=== PATIENT | female | born 1990 | race Caucasian/White ===

== ENCOUNTER 2016-12-05 11:36 | Emergency (ER) | payer OTHER ==
[~2016-12-05] VITALS: Ht 175.3 cm; Wt 78.7 kg
[~2016-12-05 11:36] MED LIST: ACET-749 PO; ALBUAER INH
[2016-12-05 11:40] VITALS: TEMP 36.4; Ht 175.3 cm; Wt 78.7 kg
--- NOTE | 2016-12-05 12:23 | DIAGNOSTIC IMAGING REPORT ---
LEFT ANKLE MIN 3 VIEWS ROUTINE CLINICAL HISTORY: Left ankle pain and trauma COMPARISON: None. DISCUSSION: No fractures or dislocations are visualized. The ankle mortise appears intact on these nonstress views. IMPRESSION: No fractures or dislocations identified. Electronically signed by: Russ Quiroz M.D. 12/05/2016 12:22 PM Dictated Date/Time: 12/05/2016 12:21 PM
[2016-12-05 12:55] VITALS: BP 103/67; PULSE 72; O2SAT 100
--- NOTE | 2016-12-05 21:40 | EMERGENCY ROOM VISIT NOTE ---
ED Visit Note First contact with patient: 11:49 Chief complaint: Left ankle pain. HPI: This 26-year-old white female presents to the emergency room for evaluation of her left ankle. The patient injured the ankle yesterday. She states she was at work and stepped awkwardly off of the curb. Her foot inverted. Since that time, they have had persistent pain over the lateral portion of the ankle. They deny any numbness or tingling. Pain is worse with weight-bearing. She has been walking with a limp. no knee or hip pain. No pop or snap with injury. Treatment has consisted of ice provided in the ER and [id number] orthotics that she bought yesterday. They did not help.. Positive prior history of ankle sprains. Pain is 5/10. REVIEW OF SYSTEM: HEENT: No dizziness, visual problems, hearing loss, tinnitus. There is no difficulty swallowing and no oral lesions are present. PULMONARY: No cough, shortness of breath, sputum production or hemoptysis. CARDIOVASCULAR: No chest pain, palpitations, shortness of breath or peripheral edema. GASTROINTESTINAL: No diarrhea, constipation, nausea, vomiting, or abdominal pain. GENITOURINARY: No dysuria, frequency, urgency or nocturia. NEUROLOGIC: No weakness, muscle tenderness, epilepsy or history of neurological problems. MUSCULOSKELETAL: No history of joint tenderness/swelling. No history of arthritis or arthralgias. SKIN: No rashes or lesions. PSYCHIATRIC: No history of depression or mental illness. ENDOCRINE: No history of diabetes, thyroid disorders, abnormal hair growth. PAST MEDICAL HISTORY: Supplemental sheet was reviewed. Previous surgeries: None Medical history: Benign Current medications: Reviewed and filed in patient's chart Allergies: Toradol, tramadol Family history: Noncontributory. Parents are living. Social history: Employed as a pop singer. PHYSICAL EXAM: Vitals: Afebrile. Reviewed and filed in patient's chart General: Well-developed, well-nourished, young white female, in obvious discomfort. No acute distress. She is sitting on a bed. Alert and oriented. Skin:Warm and dry with good turgor. No rashes or lesions. No erythema. The patient is not diaphoretic. No abrasions. Edema is present over the lateral malleolus. Musculoskeletal: Left ankle evaluation reveals no pain with palpation across the knee or proximal tibia or fibula. There is pain with palpation over the lateral malleolus and the lateral ligaments. No pain over the medial malleolus or deltoid ligament. Achilles' tendon is palpated to its entirety and found to be intact and without defect. Normal Hernández test. No pain with palpation of the calcaneus, fifth metatarsal base, midfoot, forefoot, or toes. Motor function to the toes is intact and unremarkable. Motor function to the ankle is intact but range of motion is limited by pain. Strength is 5/5 for resisted motion. Positive anterior drawer, negative calcaneal tilt. Neurologic: Gross sensation is intact across all aspects of the foot and ankle via soft touch. Peripheral pulses are 2+. Data: Radiographic images of the ankle were obtained today and were reviewed by me as well as radiology. They are unremarkable for fracture or other bony abnormality. IMPRESSION: Left ankle sprain. PLAN: The patient was educated regarding today's findings. Conservative care measures were discussed. Patient was given compressigrip for edema control and will use this for the next 5 days. Ankle gel splint was also applied and will be used for support for the next 3 weeks. It may be removed for bathing and sleep. It should be used for a few additional weeks for sporting events only. Crutches were offered and patient declined. Weight-bear as tolerable. Gentle motion daily. Ice and elevate intermittently over the next 3 days, after which she may switch to moist heat. Lower leg should be elevated at night during sleep. Tylenol and ibuprofen every 6 hours as needed for discomfort. Sprain handout was provided. Return to the ER for any acute changes. Follow-up with her PCP or orthopedist if not improving in 7 days. Patient did request a note to be off work today and tomorrow. This was provided. Problem List Medical Problems: (1) Noncompliance with medication regimen Status: Chronic (2) Vaginal delivery Status: Resolved Current/Historical Medications No Active Prescriptions or Reported Meds Allergies Coded Allergies: Tramadol (Verified Allergy, Intermediate, VOMITING, 12/05/16) Ketorolac Tromethamine (Unverified Adverse Reaction, Mild, nausea, 12/05/16) Vital Signs Date Time Temp Pulse Resp B/P Pulse Ox O2 Delivery O2 Flow Rate FiO2 12/05/16 12:55 72 18 103/67 100 12/05/16 11:40 36.4 92 18 116/78 99 Room Air Departure Information Impression Primary Impression: Left ankle sprain Dispostion Home / Self-Care Condition GOOD Prescriptions No Active Prescriptions or Reported Meds Forms HOME CARE DOCUMENTATION FORM, MOTRIN USE, TYLENOL USE, Work Instructions, Return To Work: 2 days IMPORTANT VISIT INFORMATION Patient Instructions [employer] Additional Instructions weight-bear as tolerable Ice and elevate intermittently x3 days, and then use moist heat Tylenol and ibuprofen every 6 hours as needed for pain Gentle motion daily See your PCP or orthopedist if not improving over 7 days Use gel splint at all times other than bathing and sleep for 4 weeks, and then use it for an additional 2 weeks for any sporting activity Off work for Tuesday and Tuesday to allow recovery. If more time as needed, follow-up with your PCP Work Instructions Return To Work: 2 days
== END 2016-12-05 12:56 | disposition home or self-care (01) ==
LOC: C.EDB 11:38 → C.EDD 12:56
DX: S93.402A Sprain of unspecified ligament of left ankle, initial encounter (principal); W10.1XXA Fall (on)(from) sidewalk curb, initial encounter

== ENCOUNTER 2017-01-04 15:06 | Inpatient (IN) | payer OTHER ==
[~2017-01-04] VITALS: Ht 175.3 cm; Wt 75.1 kg
[2017-01-04 15:47] LABS: URINE APPEARANCE CLEAR (CLEAR); URINE BILIRUBIN NEG (NEG); URINE COLOR YELLOW; URINE EPITHELIAL CELL AUTO 20-30 /lpf (0-5); URINE NITRITE NEG (NEG); URINE PH 7.5 (4.5-7.5); URINE SPECIFIC GRAVITY 1.022 (1.000-1.030); UROBILINOGEN NEG (NEG); ZZUR CULT IF INDIC CLEAN CATCH YES
--- NOTE | 2017-01-04 15:49 | EMERGENCY ROOM VISIT NOTE ---
History Report prepared by Ignacio: Milena Barclay Under the Supervision of: Dr. Steven Hernandez M.D. First contact with patient: 15:11 Chief Complaint: MENTAL HEALTH EVALUATION Stated Complaint: MENTAL HEALTH EVALUATION History of Present Illness The patient is a 26 year old female who presents to the Emergency Room for mental health evaluation. The patient states that she has had constant suicidal ideation for the past 3 days. She denies having a plan at this time. The patient states that she suffers from anxiety, depression and PTSD. She has not been on any medication for the past 2 years. She states that 2 years ago she was treated inpatient for a suicide attempt. The patient's plan at that time was to jump out her window which her mother stopped her from doing. The patient states that around a month ago she began cutting herself but did not seek help at that time. Since then her symptoms have worsened. The patient states that the cause of her symptoms are from family and work troubles. She states "a lot of stuff is going on". The patient has been getting written up at work for behavior such as having a wrinkled shirt. She also notes that she has not been able to see her children. She admits to cutting her wrist. The patient notes that she has not eaten for the past 3 days. She also is only sleeping for a few hours each day. The patient has been having trouble controlling her emotions and is having crying spells. She admits to using marijuana a few weeks ago but denies daily drug or alcohol use. The patient denies known health problems, having a therapist or counselor. She also denies chance of . The patient's tetanus is UTD. She would like inpatient treatment. Source of History: patient Onset: 3 days QUALITY CONTROL REPRESENTATIVE Position: other (global) Quality: other (suicidal ideation) Timing: constant Note: The patient has been cutting her wrist. She denies known health problems, chance. Review of Systems See HPI for pertinent positives & negatives. A total of 10 systems reviewed and were otherwise negative. Past Medical & Surgical Medical Problems: (1) Anxiety (2) Depression (3) Noncompliance with medication regimen (4) Ovarian cyst (5) PTSD (post-traumatic stress disorder) (6) Vaginal delivery Family History Diabetes mellitus FH: migraines Hypertension Kidney disease or stones Seizures Social History Smoking Status: Current Every Day Smoker Alcohol Use: none Drug Use: none Marital Status: in relationship Housing Status: lives with family Occupation Status: unemployed Current/Historical Medications No Active Prescriptions or Reported Meds Allergies Coded Allergies: Tramadol (Verified Allergy, Intermediate, VOMITING, 01/04/17) Ketorolac Tromethamine (Verified Adverse Reaction, Mild, nausea, 01/04/17) Physical Exam Vital Signs Date Time Temp Pulse Resp B/P (MAP) Pulse Ox O2 Delivery O2 Flow Rate FiO2 01/04/17 17:05 71 17 104/78 98 Room Air 01/04/17 15:08 36.9 116 18 110/71 100 Room Air Physical Exam GENERAL: Patient is in no acute distress. HEENT: No acute trauma, normocephalic atraumatic, mucous membranes moist, no nasal congestion, no scleral icterus. NECK: No stridor, no adenopathy, no meningismus, trachea is midline. LUNGS: Clear to auscultation bilaterally, no wheeze, no rhonchi, breath sounds equal. HEART: Tachycardic with regular rhythm, no murmurs. ABDOMEN: Soft, nontender, bowel sounds positive, no hernias, no peritonitis. EXTREMITIES: No cyanosis or edema, full range of motion of all the joints without pain or difficulty, superficial healing lacs to the volar left wrist-- no infection. NEUROLOGIC: Oriented x 3, no acute motor or sensory deficits, no focal weakness. SKIN: No rash, no jaundice, no diaphoresis. PSYCH: Cooperative, admits to suicidal ideation with no set plan, currently voluntary. Medical Decision & Procedures Laboratory Results 01/04/17 15:57 01/04/17 15:57 Test 01/04/17 15:30 01/04/17 15:57 Urine Color YELLOW Urine Appearance CLEAR (CLEAR) Urine pH 7.5 (4.5-7.5) Urine Specific [place] 1.022 (1.000-1.030) Urine Protein NEG (NEG) Urine Glucose (UA) NEG (NEG) Urine Ketones NEG (NEG) Urine Occult Blood 3+ (NEG) Urine Nitrite NEG (NEG) Urine Bilirubin NEG (NEG) Urine Urobilinogen NEG (NEG) Urine Leukocyte Esterase NEG (NEG) Urine WBC (Auto) 1-5 /hpf (0-5) Urine RBC (Auto) >30 /hpf (0-4) Urine Hyaline Casts (Auto) 1-5 /lpf (0-5) Urine Epithelial Cells (Auto) 20-30 /lpf (0-5) Urine Bacteria (Auto) 2+ (NEG) Urine Test NEG (NEG) Urine Opiates Screen NEG (NEG) Urine Methadone, Qualitative NEG (NEG) Urine Barbiturates NEG (NEG) Urine Phencyclidine (PCP) Level NEG (NEG) Ur Amphetamine/Methamphetamine NEG (NEG) MDMA (Ecstasy) Screen NEG (NEG) Urine Benzodiazepines Screen NEG (NEG) Urine Cocaine Metabolite NEG (NEG) Urine Marijuana (THC) NEG (NEG) Red Blood Count 4.44 M/uL (4.2-5.4) Mean Corpuscular Volume 85.1 fL (80-100) Mean Corpuscular Hemoglobin 27.9 pg (25-34) Mean Corpuscular Hemoglobin Concent 32.8 g/dl (32-36) RDW Standard Deviation 55.7 fL (36.4-46.3) RDW Coefficient of Variation 17.7 % (11.5-14.5) Mean Platelet Volume 9.4 fL (7.4-10.4) Anion Gap 5.0 mmol/L (3-11) Est Creatinine Clear Calc Drug Dose 139.5 ml/min Estimated GFR () 144.0 Estimated GFR (Non- 124.3 BUN/Creatinine Ratio 10.7 (10-20) Calcium Level 8.9 mg/dl (8.5-10.1) Total Bilirubin 0.3 mg/dl (0.2-1) Aspartate Amino Transf (AST/SGOT) 11 U/L (15-37) Alanine Aminotransferase (ALT/SGPT) 19 U/L (12-78) Alkaline Phosphatase 58 U/L (45-117) Total Protein 8.1 gm/dl (6.4-8.2) Albumin 4.2 gm/dl (3.4-5.0) Globulin 3.9 gm/dl (2.5-4.0) Albumin/Globulin Ratio 1.1 (0.9-2) Thyroid Stimulating Hormone (TSH) 2.080 uIu/ml (0.300-4.500) Salicylates Level < 1.7 mg/dl (2.8-20) Acetaminophen Level < 2 ug/ml (10-30) Ethyl Alcohol mg/dL < 3.0 mg/dl (0-3) Laboratory results reviewed by me. Medications Administered Medications (Trade) Dose Ordered Sig/Blanka Route Start Time Stop Time Status Last Admin Dose Admin Acetaminophen (Tylenol Tab) 1,000 mg STK-MED ONCE PO 01/04/17 17:27 01/04/17 17:28 DC 01/04/17 17:31 1,000 MG ED Course 1513: The patient was evaluated in room A5. A complete history and physical exam was performed. 1728: [facility] is looking to take her on their service voluntarily. 1839: The patient has been accepted to [facility] voluntarily. 1843: I discussed results and treatment plan with the patient. She verbalizes agreement and understanding. The patient will be evaluated for further management. Medical Decision The patient is a 26 year old female who presents to the ED for mental health evaluation. Differential diagnoses considered include drug and alcohol abuse, thyroid disorder, electrolyte or metabolic imbalance, , situational depression and anxiety. There is no leukocytosis or concerning anemia. No significant electrolyte abnormality, kidney failure or hepatitis. The patient appears to be in a euthyroid state. testing is negative. Urinalysis shows contamination and hematuria-the patient is on her menstrual cycle. Urine tox is negative. Aspirin, Tylenol and alcohol levels are undetectable. The patient presents voluntarily--she is suicidal. She is medically clear for a psychiatric stay. The patient was seen by the psychiatry services at this hospital. She is being brought into our psychiatry floor voluntarily. She has done well during her stay here in the ER. Medication Reconciliation: I attest that I have personally reviewed the patient' s current medication list. Blood Pressure Screening: Patient was found to have normal blood pressure on screening and does not require follow-up. Impression Primary Impression: Suicidal ideation Scribe Attestation The scribe's documentation has been prepared under my direction and personally reviewed by me in its entirety. I confirm that the note above accurately reflects all work, treatment, procedures, and medical decision making performed by me. Departure Information Dispostion Mental Health Acute Care Prescriptions No Active Prescriptions or Reported Meds Referrals Oli Geronimo M.D. (PCP)
[2017-01-04 15:54] LABS: MANUAL MICROSCOPIC REQUIRED? NO; REVIEW REQ? NO
[2017-01-04 16:07] LABS: HEMATOCRIT 37.8 % (37-47); MEAN CELL VOLUME 85.1 fL (80-100); MEAN CORPUSCULAR HEMOGLOBIN 27.9 pg (25-34); MEAN CORPUSCULAR HGB CONC 32.8 g/dl (32-36); MEAN PLATELET VOLUME 9.4 fL (7.4-10.4); PLATELET COUNT 303 K/uL (130-400); RED BLOOD COUNT 4.44 M/uL (4.2-5.4); WHITE BLOOD COUNT 4.39 K/uL (4.8-10.8)
[2017-01-04 16:34] LABS: BUN/CREATININE RATIO 10.7 (10-20); CALCIUM 8.9 mg/dl (8.5-10.1); CREATININE 0.65 mg/dl (0.60-1.20); POTASSIUM 3.4 mmol/L (3.5-5.1)
[2017-01-04 16:40] LABS: ACETAMINOPHEN < 2 ug/ml (10-30)
[2017-01-04 16:44] LABS: ALB/GLOB RATIO 1.1 (0.9-2); THYROID STIMULATING HORMONE 2.08 uIu/ml (0.300-4.500)
[2017-01-04 17:05] VITALS: O2SAT 98
[2017-01-04] MEDS ORDERED: ACETAMINOPHEN 500 MG TAB PO ONE (17:27)
[2017-01-04 18:10] LABS: BENZODIAZEPINE, URINE NEG (NEG); COCAINE,URINE NEG (NEG); PHENCYCLIDINE, URINE NEG (NEG)
[2017-01-04] MEDS ORDERED: NURSING VERBAL MED ORDER ONE (18:30)
[2017-01-04] MEDS ORDERED: ALUMINUM/MAGNESIUM SUSP 30 ML UDC PO PRN (19:30)
[2017-01-04] MEDS ORDERED: MAGNESIUM HYDROXIDE SUSP 30 ML UDC PO PRN (19:30)
[2017-01-04] MEDS ORDERED: NICOTINE 21 MG/24 HR TDSY EXT ONE (19:30)
[2017-01-04] MEDS ORDERED: BISMUTH SUBSALICYLATE PER ML OMNICELL CHARGE PO PRN (19:30)
[2017-01-04] MEDS ORDERED: SODIUM CHLORIDE 0.65% NA SOLN 45 ML (OCEAN) PRN (19:30)
[2017-01-04 20:12] VITALS: BP 99/65; PULSE 74; TEMP 36.6; Ht 175.3 cm; Wt 75.1 kg
[2017-01-04] MEDS: NICOTINE POLACRILEX 2 MG GUM MT PRN (21:29)
[2017-01-04] MEDS: hydrOXYzine HCL 25 MG TAB PO PRN (22:17)
[2017-01-04] MEDS: ACETAMINOPHEN 325 MG TAB PO PRN (22:39)
[2017-01-05 06:41] VITALS: BP_SYST 103; BP_SYST 91; BP_DIAS 59; BP_DIAS 73; PULSE 66; PULSE 83; TEMP 36.5
[2017-01-05] MEDS: NICOTINE 21 MG/24 HR TDSY EXT SCH (09:01)
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
[2017-01-05] MEDS: NICOTINE POLACRILEX 2 MG GUM MT PRN (11:07)
[2017-01-05] MEDS: hydrOXYzine HCL 25 MG TAB PO PRN ×2 (12:27→22:32)
[2017-01-05] MEDS: ESCITALOPRAM OXALATE 10 MG TAB PO SCH (21:12)
[2017-01-05] MEDS: ACETAMINOPHEN 325 MG TAB PO PRN (22:33)
[2017-01-06 06:36] VITALS: BP_SYST 80; BP_SYST 90; BP_DIAS 46; BP_DIAS 55; PULSE 54; PULSE 71; TEMP 36.7
[2017-01-06] MEDS: NICOTINE 21 MG/24 HR TDSY EXT SCH (08:46)
[2017-01-06] MEDS: hydrOXYzine HCL 25 MG TAB PO PRN ×3 (13:06→22:25)
--- NOTE | 2017-01-06 13:31 | Psychiatric Progress Notes ---
Progress Note Date of Service Jan 06, 2017. Interval History Lesly Ornelas is a 26-year-old female who currently lives in [place], has a history of recurrent depression and rule out PTSD, bipolar type II, treatment noncompliance, alcohol abuse, and borderline intellectual functioning who presented to the emergency room 01/04/2017 with worsening mood and suicidality and thoughts to walk out in front of traffic. She was admitted voluntarily. Chief Complaint "Better". Subjective Staff report the patient is going to groups, participating in treatment, and taking medications without difficulty. The patient states that her mood has improved since admission, stating that she talk to her boyfriend that he is going to help her find a new job. She plans to continue to work at [employer] until that time, stating she needs the money. When asked about reports in the record that she endorsed thoughts of harming her boss, she states that she never had a plan or intent to harm anyone, but was "just angry." She states that her boss was not supportive when the patient told her that she needed to go to the hospital and get treatment, wanting her to be discharged quickly so that she could return to work. She denies any history of harming anyone else, and denies any current thoughts of harming anyone. She states that she thinks she will be able to get along with her boss while she continues to work there and look for a new job. She wanted advice on how to make sure she would not be fired from her job for missing work while she is in the hospital, and we reviewed a plan for her to call her employer today and inform them that she would be cleared to return to work in about a week and would have a doctor's note for this. She said she is anxious about calling, and wondered if staff could just do it for her, but was informed that this would be a good task for her to practice and that we would support her. She denies suicidal thoughts and feels safe here. She reports disrupted sleep, with nightmares about her mother finding out she is in the hospital. She was very anxious yesterday after she saw the hospital staff member who is friends with her mother, fearing that this person would tell her mother she was here, she felt better after talking to staff and taking hydroxyzine for anxiety. Sleep Information Total Hours of Sleep: 8.25 Meal Information Percent of Breakfast Consumed: 50 Percent of Lunch Consumed: 50 Percent of Dinner Consumed: 50 Mental Status Exam During interview pt is: alert and oriented, cooperative Appearance: appropriately dressed, appropriately groomed Eye contact is: good Motor behavior is: steady gait & station, no abnormal motor movements Speech: normal in rate, rhythm & volume Affect: mood congruent Mood is: other ("better") Thought process: goal directed, linear, logical, concrete Thought content: reality based without delusions Suicidal thought are: denied Homicidal thoughts are: denied Hallucinations: denies auditory, denies visual Cognition: memory grossly intact, attention grossly intact, language grossly intact Intelligence estimated to be: consistent with level of education Insight: fair Judgement: fair Impression 26-year-old single white female with a history of recurrent depression and rule out bipolar type II, PTSD, alcohol abuse, and borderline intellectual functioning who had [id number] admissions in 2014, was started on lamotrigine , sertraline, and hydroxyzine when necessary, and discharged to outpatient care. She unfortunately stopped medications and did not follow up as an outpatient, and mood and anxiety have worsened in the context of increasing psychosocial stressors, with job stress, loss of ability to visit with children , financial strain, and difficult relationships with family. She is willing to resume medication for mood and anxiety, and is requesting a referral to [place] for outpatient treatment. Plan (1) PTSD (post-traumatic stress disorder) Trial of escitalopram as above. Refer for outpatient therapy. (2) Depression - Patient requesting another antidepressant. She never took lamotrigine as she doesn't think she has bipolar, and is not willing to take a mood stabilizer. R/ o bipolar type 2, as mother had previously reported some hypomanic episodes, but patient disagrees. It is certainly possible that the symptoms described above could be seen in the context of her personality structure, substance abuse , and/or cognitive abilities rather than a true bipolar disorder. She will require close monitoring for mood destabilization, and we reviewed the risks of this. Discussed trial of escitalopram and she agreed after review of risks, benefits and side effects. We'll start 10 mg daily at bedtime tonight, and titrate as tolerated. - Interested in referral to [facility] for aftercare. Does not want to return to case management, clubhouse or psych rehab. - Family meeting with boyfriend if possible. She states he is only available on Tuesday. She does not want to involve her mother. (3) Suicidal ideation Q 15 min checks for safety. Work on healthy coping skills and discharge safety plan. (4) Ovarian cyst 01/06 - Patient requesting to start an oral contraceptive. Advised that we do not stop them here, but could send a prescription at discharge if we knew the name of the medication she's taken in the past. She is looking into that. She should follow up with an BUILDING MAINTENANCE CUSTODIAN after discharge for regular care. Discharge / Aftercare Planning Primary Care Physician: Name: Dr Geronimo Therapist: Name: .Red Guzman Date of Appointment: Jan 13, 2017 Time of Appointment: 2:30Pm Sociocultural Anthropology Professor: Name: None Visit Code E&M Code: 25387 Inventory Assets Strengths: "Good boyfriend," wants to get custody of kids back, employed Risk Factors Assessment : Yes /single/: Yes Higher / Fall in social status: No Health problems: No Mental Health Diagnoses: Yes Substance use disorders: No Previous attempt: Yes Previous attempt;highly lethal: No Previous psychiatric stay: Yes Hopelessness: Yes Smoker: Yes Protective Factors Assessment Jehovah'S Witness beliefs: No : No Responsible for young children: No (Lost custody of kids) Employed: Yes Stable relationships: Yes Supportive family: No Good rapport with provider: No (no outpatient providers) Data Vital Signs Last 24 Hrs: Date Time Temp Pulse Resp B/P (MAP) Pulse Ox O2 Delivery O2 Flow Rate FiO2 01/06/17 06:36 36.7 54 18 90/55 71 80/46 Meds Administered Last 24 Hrs: Meds Administered (Past 24Hrs) Medications (Trade) Dose Ordered Sig/Blanka Route Start Time Stop Time Status Last Admin Dose Admin Acetaminophen (Tylenol Tab) 1,000 mg STK-MED ONCE PO 01/04/17 17:27 01/04/17 17:28 DC 01/04/17 17:31 1,000 MG Acetaminophen (Tylenol Tab) 650 mg Q4H PRN PO 01/04/17 19:30 02/03/17 19:29 01/05/17 22:33 650 MG Hydroxyzine HCl (Vistaril Tab) 50 mg HSZ PRN PO 01/04/17 19:30 02/03/17 19:29 01/05/17 22:32 50 MG Hydroxyzine HCl (Vistaril Tab) 25 mg Q4H PRN PO 01/04/17 19:30 02/03/17 19:29 01/06/17 13:06 25 MG Nicotine (Nicoderm Cq 21MG Patch) 1 patch QAM EXT 01/05/17 09:00 02/04/17 08:59 01/06/17 08:46 1 PATCH Miscellaneous (Remove Nicoderm Patch) 1 ea QAM N/A 01/05/17 09:00 02/04/17 08:59 01/06/17 08:47 1 EA Nicotine (Nicoderm Cq 21MG Patch) 1 patch TODAY@1930 ONCE EXT 01/04/17 19:30 01/04/17 19:31 DC 01/04/17 19:56 1 PATCH Nicotine Polacrilex (Nicorette 2MG Gum) 1-2 PIECES Q2HWA PRN MT 01/04/17 19:30 02/03/17 19:29 01/05/17 11:07 2 PIECE Escitalopram Oxalate (Lexapro Tab) 10 mg HS PO 01/05/17 22:00 02/04/17 21:59 01/05/17 21:12 10 MG
[2017-01-06] MEDS: ESCITALOPRAM OXALATE 10 MG TAB PO SCH (22:26)
[2017-01-07 06:51] VITALS: BP 92/60; PULSE 61; PULSE 69; TEMP 36.5
[2017-01-07] MEDS: NICOTINE 21 MG/24 HR TDSY EXT SCH (10:07)
[2017-01-07] MEDS: NICOTINE POLACRILEX 2 MG GUM MT PRN (14:31)
--- NOTE | 2017-01-07 15:18 | Psychiatric Progress Notes ---
Progress Note Date of Service Jan 07, 2017. Interval History Lesly Ornelas is a 26-year-old female who currently lives in [place], has a history of recurrent depression and rule out PTSD, bipolar type II, treatment noncompliance, alcohol abuse, and borderline intellectual functioning who presented to the emergency room 01/04/2017 with worsening mood and suicidality and thoughts to walk out in front of traffic. She was admitted voluntarily. Chief Complaint "nightmares". Subjective Patient was seen & assessed interval progress reviewed with Treatment Team. She states that her mother is now aware of her hospitalization. She denies dysuria but culture did grow E Coli. She denies paranoia but continues to believe that her daughter's aunt is trying to "mess" with her hospitalization, apparently had expressed significant concerns to staff when her lunch order wasn 't 100% correct. She verbalizes desire to resume OCP but just stopped menstruating, reviewed that in my opinion can wait til outpatient follow up to be addressed with PCP. She is hoping to set limits on her work schedule due to stress. States that her nightmare was about the aunt that works here and that copatients were turned against her and tried to harm her. Was positive re: daughter's visit today. Review of Systems Psych: denies symptoms other than stated above Constitutional: denied Cardiovascular: denied GI: denied Neurologic: denied Remainder of 10 body systems also reviewed and denied other than noted above. Sleep Information Total Hours of Sleep: 6.00 Meal Information Percent of Breakfast Consumed: 50 Percent of Lunch Consumed: 100 Percent of Dinner Consumed: 75 Mental Status Exam During interview pt is: alert and oriented, cooperative Appearance: appropriately dressed, appropriately groomed Eye contact is: good Motor behavior is: steady gait & station, no abnormal motor movements Speech: normal in rate, rhythm & volume Affect: mood congruent Mood is: other ("better") Thought process: goal directed, linear, logical, concrete Thought content: reality based without delusions (though perseveration on daughter's aunt) Suicidal thought are: denied Homicidal thoughts are: denied Hallucinations: denies auditory, denies visual Cognition: memory grossly intact, attention grossly intact, language grossly intact Intelligence estimated to be: consistent with level of education Insight: limited Judgement: limited Impression 26-year-old single white female with a history of recurrent depression and rule out bipolar type II, PTSD, alcohol abuse, and borderline intellectual functioning who had [id number] admissions in 2014, was started on lamotrigine , sertraline, and hydroxyzine when necessary, and discharged to outpatient care. She unfortunately stopped medications and did not follow up as an outpatient, and mood and anxiety have worsened in the context of increasing psychosocial stressors, with job stress, loss of ability to visit with children , financial strain, and difficult relationships with family. She is willing to resume medication for mood and anxiety, and is requesting a referral to [facility] for outpatient treatment. Plan (1) PTSD (post-traumatic stress disorder) on admit--Trial of escitalopram as above. Refer for outpatient therapy. 01/07--tolerating Lexapro, given past diagnosis of bipolar II should consider additional mood stabilizer. Apparently has refused to resume Lamictal. Discussed trial of trazodone for sleep and she agrees but ultimately may need to consider Seroquel. (2) Depression on admit--- Patient requesting another antidepressant. She never took lamotrigine as she doesn't think she has bipolar, and is not willing to take a mood stabilizer. R/o bipolar type 2, as mother had previously reported some hypomanic episodes, but patient disagrees. It is certainly possible that the symptoms described above could be seen in the context of her personality structure, substance abuse, and/or cognitive abilities rather than a true bipolar disorder. She will require close monitoring for mood destabilization, and we reviewed the risks of this. Discussed trial of escitalopram and she agreed after review of risks, benefits and side effects. We'll start 10 mg daily at bedtime tonight, and titrate as tolerated. - Interested in referral to [facility] for aftercare. Does not want to return to case management, clubhouse or psych rehab. - Family meeting with boyfriend if possible. She states he is only available on Tuesday. She does not want to involve her mother. 01/07/17--continue Lexapro 10 and monitor for activation. Consider Seroquel. (3) Suicidal ideation Q 15 min checks for safety. Work on healthy coping skills and discharge safety plan. (4) Ovarian cyst 01/06 - Patient requesting to start an oral contraceptive. Advised that we do not stop them here, but could send a prescription at discharge if we knew the name of the medication she's taken in the past. She is looking into that. She should follow up with an CUSTOMER DATA TECHNICIAN after discharge for regular care. Discharge / Aftercare Planning Primary Care Physician: Name: Dr Geronimo Therapist: Name: Marion Guzman Date of Appointment: Jan 13, 2017 Time of Appointment: 2:30Pm Front Counter Attendant: Name: None Visit Code E&M Code: 28158 Inventory Assets Strengths: "Good boyfriend," wants to get custody of kids back, employed Risk Factors Assessment : Yes /single/: Yes Higher / Fall in social status: No Health problems: No Mental Health Diagnoses: Yes Substance use disorders: No Previous attempt: Yes Previous attempt;highly lethal: No Previous psychiatric stay: Yes Hopelessness: Yes Smoker: Yes Protective Factors Assessment Islam beliefs: No : No Responsible for young children: No (Lost custody of kids) Employed: Yes Stable relationships: Yes Supportive family: No Good rapport with provider: No (no outpatient providers) Data Vital Signs Last 24 Hrs: Date Time Temp Pulse Resp B/P (MAP) Pulse Ox O2 Delivery O2 Flow Rate FiO2 01/07/17 06:51 36.5 69 18 92/60 61 92/60 Meds Administered Last 24 Hrs: Meds Administered (Past 24Hrs) Medications (Trade) Dose Ordered Sig/Blanka Route Start Time Stop Time Status Last Admin Dose Admin Escitalopram Oxalate (Lexapro Tab) 10 mg HS PO 01/05/17 22:00 02/04/17 21:59 01/06/17 22:26 10 MG
[2017-01-07] MEDS: NITROFURANTOIN MONOHYDRATE 100 MG CAP PO SCH (16:08)
[2017-01-07] MEDS: TRAZODONE HCL 100 MG TAB PO SCH (22:23)
[2017-01-07] MEDS: ESCITALOPRAM OXALATE 10 MG TAB PO SCH (22:23)
[2017-01-08 06:55] VITALS: BP_SYST 92; BP_DIAS 60; BP_DIAS 61; PULSE 66; PULSE 67; TEMP 36.4
[2017-01-08] MEDS: NICOTINE 21 MG/24 HR TDSY EXT SCH ×2 (09:00→11:58)
[2017-01-08] MEDS: NITROFURANTOIN MONOHYDRATE 100 MG CAP PO SCH ×2 (09:14→20:01)
--- NOTE | 2017-01-08 11:35 | Psychiatric Progress Notes ---
Progress Note Date of Service Jan 08, 2017. Interval History Lesly Ornelas is a 26-year-old female who currently lives in [place], has a history of recurrent depression and rule out PTSD, bipolar type II, treatment noncompliance, alcohol abuse, and borderline intellectual functioning who presented to the emergency room 01/04/2017 with worsening mood and suicidality and thoughts to walk out in front of traffic. She was admitted voluntarily. Chief Complaint "Feel good". Subjective Patient was seen & assessed interval progress reviewed with Treatment Team. Reports that she slept better last night with addition of Trazodone and did not have any nightmares. Side effect from Trazodone of dizziness upon awakening which resolved when she slowed down going from laying/sitting to standing. Denies any thoughts to harm herself or others. Denies any history of past manic or hypomanic episodes. Does not believe that she has Bipolar disorder despite past diagnosis. Declines to consider a mood stabilizing medication. Review of Systems Psych: denies symptoms other than stated above Constitutional: denied Cardiovascular: denied GI: denied Neurologic: denied Remainder of 10 body systems also reviewed and denied other than noted above. Sleep Information Total Hours of Sleep: 6.50 Meal Information Percent of Breakfast Consumed: 0 Percent of Lunch Consumed: 100 Percent of Dinner Consumed: 75 Mental Status Exam During interview pt is: alert and oriented, cooperative Appearance: appropriately dressed, appropriately groomed Eye contact is: good Motor behavior is: steady gait & station, no abnormal motor movements Speech: normal in rate, rhythm & volume Affect: mood congruent Mood is: other ("better") Thought process: goal directed, linear, logical, concrete Thought content: reality based without delusions (though perseveration on daughter's aunt) Suicidal thought are: denied Homicidal thoughts are: denied Hallucinations: denies auditory, denies visual Cognition: memory grossly intact, attention grossly intact, language grossly intact Intelligence estimated to be: consistent with level of education Insight: limited Judgement: limited Impression 26-year-old single white female with a history of recurrent depression and rule out bipolar type II, PTSD, alcohol abuse, and borderline intellectual functioning who had [id number] admissions in 2014, was started on lamotrigine , sertraline, and hydroxyzine when necessary, and discharged to outpatient care. She unfortunately stopped medications and did not follow up as an outpatient, and mood and anxiety have worsened in the context of increasing psychosocial stressors, with job stress, loss of ability to visit with children , financial strain, and difficult relationships with family. She is willing to resume medication for mood and anxiety, and [facility]. Plan (1) PTSD (post-traumatic stress disorder) on admit--Trial of escitalopram as above. Refer for outpatient therapy. 01/07--tolerating Lexapro, given past diagnosis of bipolar II should consider additional mood stabilizer. Apparently has refused to resume Lamictal. Discussed trial of trazodone for sleep and she agrees but ultimately may need to consider Seroquel. (2) Depression on admit--- Patient requesting another antidepressant. She never took lamotrigine as she doesn't think she has bipolar, and is not willing to take a mood stabilizer. R/o bipolar type 2, as mother had previously reported some hypomanic episodes, but patient disagrees. It is certainly possible that the symptoms described above could be seen in the context of her personality structure, substance abuse, and/or cognitive abilities rather than a true bipolar disorder. She will require close monitoring for mood destabilization, and we reviewed the risks of this. Discussed trial of escitalopram and she agreed after review of risks, benefits and side effects. We'll start 10 mg daily at bedtime tonight, and titrate as tolerated. - Interested in referral to [facility] for aftercare. Does not want to return to case management, clubhouse or psych rehab. - Family meeting with boyfriend if possible. She states he is only available on Tuesday. She does not want to involve her mother. 01/07/17--continue Lexapro 10 and monitor for activation. Consider Seroquel. 01/08 - Slept better with addition of Trazodone and continues to decline mood stabilizer. Reviewed risk of mood destabilizing if Bipolar disorder diagnosis and increased risk due to mother having history of Bipolar disorder but patient declines consideration of any mood stabilizer. Will continue to monitor for signs of activation. (3) Suicidal ideation Q 15 min checks for safety. Work on healthy coping skills and discharge safety plan. (4) Ovarian cyst 01/06 - Patient requesting to start an oral contraceptive. Advised that we do not stop them here, but could send a prescription at discharge if we knew the name of the medication she's taken in the past. She is looking into that. She should follow up with an BANKING MANAGEMENT CONSULTING MANAGER after discharge for regular care. Discharge / Aftercare Planning Primary Care Physician: Name: Dr Geronimo Date of Appointment: Jan 14, 2017 Time of Appointment: 1:50pm Psychiatrist: Name: Red Appointment Notes: to be scheduled after intake on 01/13 Therapist: Name: Red Guzman Date of Appointment: Jan 13, 2017 Time of Appointment: 2:30Pm Environmental Economist: Name: None Visit Code E&M Code: 04171 Inventory Assets Strengths: "Good boyfriend," wants to get custody of kids back, employed Risk Factors Assessment : Yes /single/: Yes Higher / Fall in social status: No Health problems: No Mental Health Diagnoses: Yes Substance use disorders: No Previous attempt: Yes Previous attempt;highly lethal: No Previous psychiatric stay: Yes Hopelessness: Yes Smoker: Yes Protective Factors Assessment Buddhism beliefs: No : No Responsible for young children: No (Lost custody of kids) Employed: Yes Stable relationships: Yes Supportive family: No Good rapport with provider: No (no outpatient providers) Data Vital Signs Last 24 Hrs: Date Time Temp Pulse Resp B/P (MAP) Pulse Ox O2 Delivery O2 Flow Rate FiO2 01/08/17 06:55 36.4 66 18 92/60 67 92/61 Meds Administered Last 24 Hrs: Meds Administered (Past 24Hrs) Medications (Trade) Dose Ordered Sig/Blanka Route Start Time Stop Time Status Last Admin Dose Admin Trazodone HCl (Desyrel Tab) 100 mg HS PO 01/07/17 22:00 02/06/17 21:59 01/07/17 22:23 100 MG Nitrofurantoin Macrocrystals (Macrobid Cap) 100 mg Q12@0800,1999 PO 01/07/17 16:00 01/12/17 15:59 01/08/17 09:14 100 MG
[2017-01-08] MEDS: hydrOXYzine HCL 25 MG TAB PO PRN (16:48)
[2017-01-08] MEDS: TRAZODONE HCL 100 MG TAB PO SCH (22:28)
[2017-01-08] MEDS: ESCITALOPRAM OXALATE 10 MG TAB PO SCH (22:29)
[2017-01-09 06:46] VITALS: BP_SYST 88; BP_SYST 96; BP_DIAS 56; BP_DIAS 64; PULSE 76; PULSE 89; TEMP 36.5
[2017-01-09] MEDS: NICOTINE 21 MG/24 HR TDSY EXT SCH (08:37)
[2017-01-09] MEDS: NITROFURANTOIN MONOHYDRATE 100 MG CAP PO SCH (08:37)
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
[2017-01-09] MEDS ORDERED: DSY100 PO (10:15)
[2017-01-09] MEDS ORDERED: MCRB100 PO (10:15)
[2017-01-09] MEDS ORDERED: LXP10 PO (10:15)
[2017-01-09] MEDS ORDERED: ATR25 PO (13:01)
== END 2017-01-09 14:25 | disposition home or self-care (01) | DRG 885 ==
LOC: C.EDB 15:07 → C.MHU 18:31 → ENRESERV 19:10
PROVIDERS: ADMIT Psychiatry & Neurology Psychiatry; ATTEND Psychiatry & Neurology Psychiatry
DX: F33.2 Major depressive disorder, recurrent severe without psychotic features (principal); R45.851 Suicidal ideations; F41.9 Anxiety disorder, unspecified; F43.10 Post-traumatic stress disorder, unspecified; R41.83 Borderline intellectual functioning; N83.209 Unspecified ovarian cyst, unspecified side; F17.200 Nicotine dependence, unspecified, uncomplicated; F10.10 Alcohol abuse, uncomplicated; Z91.5 Personal history of self-harm; Z63.32 Other absence of family member; Z91.19 Patient's noncompliance with other medical treatment and regimen; Z62.810 Personal history of physical and sexual abuse in childhood; Z63.79 Other stressful life events affecting family and household; Z62.29 Other upbringing away from parents

== ENCOUNTER 2017-04-29 17:52 | Emergency (ER) | payer OTHER ==
[~2017-04-29] VITALS: Ht 175.3 cm; Wt 79.8 kg
[~2017-04-29 17:52] MED LIST changes: -ACET-749 PO; -ALBUAER INH; +ATR25 PO; +DSY100 PO; +LXP10 PO; +MCRB100 PO
[2017-04-29 18:05] VITALS: TEMP 36.9; Ht 175.3 cm; Wt 79.8 kg
[2017-04-29] MEDS ORDERED: NORG1TAB18 PO (19:48)
[2017-04-29] MEDS ORDERED: VNTHFA/IN INH (19:48)
[2017-04-29] MEDS ORDERED: ALBUT/IPRATROP 3MG/0.5MG NEB 3 ML VIAL INH STA (19:53)
[2017-04-29 20:13] LABS: BASO ABS # 0.06 K/uL (0-0.2); COMPLETE YES; HEMATOCRIT 37.8 % (37-47); IG% 0.2 %; LYMPH ABS # 2.15 K/uL (1.2-3.4); MEAN CELL VOLUME 88.7 fL (80-100); MEAN CORPUSCULAR HEMOGLOBIN 28.9 pg (25-34); MEAN CORPUSCULAR HGB CONC 32.5 g/dl (32-36); MEAN PLATELET VOLUME 9.5 fL (7.4-10.4); MONO % 8.6 %; NEUT % 54.2 %; PLATELET COUNT 304 K/uL (130-400); RED BLOOD COUNT 4.26 M/uL (4.2-5.4); WHITE BLOOD COUNT 6.15 K/uL (4.8-10.8)
[2017-04-29 20:23] LABS: INR 0.9 (0.9-1.1); PROTHROMBIN TIME (PATIENT) 9.7 SECONDS (9.0-12.0)
[2017-04-29 20:33] LABS: BUN/CREATININE RATIO 15.1 (10-20); CALCIUM 8.8 mg/dl (8.5-10.1); CREATININE 0.63 mg/dl (0.60-1.20); POTASSIUM 3.5 mmol/L (3.5-5.1)
--- NOTE | 2017-04-29 21:03 | DIAGNOSTIC IMAGING REPORT ---
CHEST 2 VIEWS ROUTINE HISTORY: 26 years-old Female cough, sob acute cough with shortness of breath and . COMPARISON: CT chest 07/22/2010 TECHNIQUE: Frontal and lateral views of the chest FINDINGS: Cardiomediastinal and hilar silhouettes are within normal limits. There is no pneumothorax, pleural effusion or focal airspace consolidation. No overt pulmonary edema. Bones appear grossly intact. Upper abdominal structures are unremarkable. IMPRESSION: No acute cardiopulmonary process. The above report was generated using voice recognition software. It may contain grammatical, syntax or spelling errors. Electronically signed by: Robles Downs M.D. 04/29/2017 9:02 PM Dictated Date/Time: 04/29/2017 9:01 PM
[2017-04-29] MEDS ORDERED: ALBUTEROL HFA 8 GM INHALER INH ONE (21:15)
[2017-04-29] MEDS ORDERED: BENZ100C18 PO (21:23)
--- NOTE | 2017-04-29 21:25 | EMERGENCY ROOM VISIT NOTE ---
History First contact with patient: 19:15 Chief Complaint: COUGH Stated Complaint: COUGHING,VOMITING,TROUBLE BREATHING History of Present Illness The patient is a 26 year old female who presents to the Emergency Room with complaints of cough and shortness of breath. The patient states that she has had a cough for the past 2 days. She reports associated shortness of breath associated with the cough. She reports that she has had a few episodes of vomiting due to the cough. During one of the episodes, she states that the vomit was blood streaked. The patient also reports a dry, scratchy throat. She does report a history of asthma. She states that she lost her inhalers. She is a smoker and does take control pills. She denies any chest pain, abdominal pain, nausea or fevers. Review of Systems A complete 10 point review of systems was reviewed with the patient with pertinent positives and negatives as per history of present illness. All else were negative. Past Medical/Surgical History Medical Problems: (1) Noncompliance with medication regimen (2) Ovarian cyst (3) PTSD (post-traumatic stress disorder) (4) Suicidal ideation (5) Vaginal delivery Family History Diabetes mellitus FH: migraines Hypertension Kidney disease or stones Seizures Social History Smoking Status: Never Smoker Alcohol Use: none Drug Use: none Marital Status: in relationship Housing Status: lives with family Occupation Status: unemployed Current/Historical Medications Scheduled Albuterol Hfa (Ventolin Hfa), 2-4 PUFFS INH Q6H Benzonatate (Tessalon Perles), 1 CAP PO TID Norgestimate-Ethinyl Estradiol (Oxford-Linyah), 1 TAB PO DAILY Physical Exam Vital Signs Date Time Temp Pulse Resp B/P (MAP) Pulse Ox O2 Delivery O2 Flow Rate FiO2 04/29/17 21:55 74 24 98/58 100 04/29/17 21:47 98/58 04/29/17 21:30 90 23 100 04/29/17 21:00 85 25 99 Room Air 04/29/17 20:45 80 04/29/17 19:50 67 14 93/60 100 Room Air 04/29/17 18:07 99 Room Air 04/29/17 18:05 36.9 92 20 99/66 98 Room Air Physical Exam VITALS: Vitals are noted on the nurse's note and reviewed by myself. Vital signs stable. GENERAL: This is a 26-year-old female, in no acute distress, nondiaphoretic, well-developed well-nourished. SKIN: The skin was without rashes. EARS: External auditory canals clear, tympanic membranes pearly daugherty without erythema or effusion bilaterally. EYES: Pupils equal round and reactive to light and accommodation. NOSE: Patent, turbinates without inflammation or discharge. MOUTH: Mucous membranes moist. Tonsils are not enlarged. Pharynx without erythema or exudate. NECK: Supple without nuchal rigidity. No lymphadenopathy. HEART: Regular rate and rhythm without murmurs gallops or rubs. LUNGS: Clear to auscultation bilaterally without wheezes, rales or rhonchi. No retractions or accessory muscle use. ABDOMEN: Soft, nontender to palpation. NEURO: Patient was alert and oriented to person place and time. Medical Decision & Procedures ER Provider Diagnostic Interpretation: CHEST 2 VIEWS ROUTINE. FINDINGS: Cardiomediastinal and hilar silhouettes are within normal limits. There is no pneumothorax, pleural effusion or focal airspace consolidation. No overt pulmonary edema. Bones appear grossly intact. Upper abdominal structures are unremarkable. IMPRESSION: No acute cardiopulmonary process. Laboratory Results 04/29/17 19:50 Red Blood Count 4.26, Mean Corpuscular Volume 88.7, Mean Corpuscular Hemoglobin 28.9, Mean Corpuscular Hemoglobin Concent 32.5, Mean Platelet Volume 9.5, Neutrophils (%) (Auto) 54.2, Lymphocytes (%) (Auto) 35.0, Monocytes (%) (Auto) 8.6, Eosinophils (%) (Auto) 1.0, Basophils (%) (Auto) 1.0, Neutrophils # (Auto) 3.34, Lymphocytes # (Auto) 2.15, Monocytes # (Auto) 0.53, Eosinophils # (Auto) 0.06, Basophils # (Auto) 0.06 04/29/17 19:50 Test 04/29/17 19:50 White Blood Count 6.15 K/uL (4.8-10.8) Red Blood Count 4.26 M/uL (4.2-5.4) Hemoglobin 12.3 g/dL (12.0-16.0) Hematocrit 37.8 % (37-47) Mean Corpuscular Volume 88.7 fL (80-100) Mean Corpuscular Hemoglobin 28.9 pg (25-34) Mean Corpuscular Hemoglobin Concent 32.5 g/dl (32-36) Platelet Count 304 K/uL (130-400) Mean Platelet Volume 9.5 fL (7.4-10.4) Neutrophils (%) (Auto) 54.2 % Lymphocytes (%) (Auto) 35.0 % Monocytes (%) (Auto) 8.6 % Eosinophils (%) (Auto) 1.0 % Basophils (%) (Auto) 1.0 % Neutrophils # (Auto) 3.34 K/uL (1.4-6.5) Lymphocytes # (Auto) 2.15 K/uL (1.2-3.4) Monocytes # (Auto) 0.53 K/uL (0.11-0.59) Eosinophils # (Auto) 0.06 K/uL (0-0.5) Basophils # (Auto) 0.06 K/uL (0-0.2) RDW Standard Deviation 51.2 fL (36.4-46.3) RDW Coefficient of Variation 15.9 % (11.5-14.5) Immature Granulocyte % (Auto) 0.2 % Immature Granulocyte # (Auto) 0.01 K/uL (0.00-0.02) Prothrombin Time 9.7 SECONDS (9.0-12.0) Prothromb Time International Ratio 0.9 (0.9-1.1) Activated Partial Thromboplast Time 26.3 SECONDS (21.0-31.0) Partial Thromboplastin Ratio 1.0 Anion Gap 6.0 mmol/L (3-11) Est Creatinine Clear Calc Drug Dose 155.8 ml/min Estimated GFR () 145.5 Estimated GFR (Non- 125.5 BUN/Creatinine Ratio 15.1 (10-20) Calcium Level 8.8 mg/dl (8.5-10.1) Medications Administered Medications (Trade) Dose Ordered Sig/Blanka Route Start Time Stop Time Status Last Admin Dose Admin Albuterol/ Ipratropium (Duoneb) 3 ml NOW STAT INH 04/29/17 19:53 04/29/17 19:55 DC 04/29/17 20:10 3 ML Albuterol (Ventolin Hfa Inhaler) 2 puffs NOW ONCE INH 04/29/17 21:15 04/29/17 21:16 DC 04/29/17 21:48 2 PUFFS Medical Decision Differential diagnosis includes bronchitis, pneumonia, asthma exacerbation, pulmonary embolism, among others. The patient is a 26-year-old female who presents today complaining of cough. Labs revealed no leukocytosis, anemia or concerning electrolyte abnormalities. D-dimer was not elevated. Chest x-ray showed no evidence of pneumonia. Patient was treated with DuoNeb with some relief of symptoms. I feel her symptoms are likely secondary to viral illness. She was prescribed Tessalon Perles to be used symptomatically as well as a Ventolin inhaler. She was advised to follow-up with her primary care provider for further evaluation or to return if she has worsening or new/concerning symptoms. Based on the patient's presentation and work up, I feel the patient is stable for outpatient treatment. The patient was educated to return to the emergency department for any worsening of their current condition or new/concerning symptoms. She will follow up with her PCP. Medication Reconcilliation Current Medication List: was personally reviewed by me Blood Pressure Screening Patient's blood pressure: Low blood pressure (this appears to be patient's baseline based on previous visits) Impression Primary Impression: Upper respiratory infection Departure Information Dispostion Home / Self-Care Condition GOOD Prescriptions Benzonatate (TESSALON PERLES) 100 Mg Cap 1 CAP PO TID for 7 Days, #21 CAP Prov: Yanet Gaspar .MARK 04/29/17 Referrals Oli Geronimo M.D. (PCP) [facility] Additional Instructions Use a Ventolin inhaler as needed for cough/shortness of breath. Use the Tessalon Perles up to 3 times daily as needed for cough. You may use an [id number]-ugqduhu cough syrup such as Delsym or Robitussin to help with cough at night. These medications may make you drowsy. You should follow-up with your primary care provider early next week for a recheck. Return to the emergency department with any worsening or new/concerning symptoms. Problem Qualifiers Primary Impression: Upper respiratory infection URI type: unspecified viral URI Qualified Codes: J06.9 - Acute upper respiratory infection, unspecified; B97.89 - Other viral agents as the cause of diseases classified elsewhere
[2017-04-29 21:55] VITALS: BP 98/58; PULSE 74; O2SAT 100
== END 2017-04-29 21:55 | disposition home or self-care (01) ==
LOC: C.EDB 17:54 → C.EDC 21:55
DX: J06.9 Acute upper respiratory infection, unspecified (principal); B97.89 Other viral agents as the cause of diseases classified elsewhere; J45.909 Unspecified asthma, uncomplicated; F17.200 Nicotine dependence, unspecified, uncomplicated; N83.209 Unspecified ovarian cyst, unspecified side; F43.10 Post-traumatic stress disorder, unspecified; Z79.3 Long term (current) use of hormonal contraceptives; Z83.3 Family history of diabetes mellitus; Z82.49 Family history of ischemic heart disease and other diseases of the circulatory system; Z82.0 Family history of epilepsy and other diseases of the nervous system; Z84.1 Family history of disorders of kidney and ureter

== ENCOUNTER 2017-07-06 17:17 | Emergency (ER) | payer OTHER ==
[~2017-07-06] VITALS: Ht 175.3 cm; Wt 81.6 kg
[2017-07-06 17:30] VITALS: TEMP 36.3; Ht 175.3 cm; Wt 81.6 kg
[2017-07-06] MEDS ORDERED: TRAZ100T29 PO (17:41)
[2017-07-06] MEDS ORDERED: HYDR1CAP85 PO (17:41)
[2017-07-06] MEDS ORDERED: ESCI10TA17 PO (17:41)
--- NOTE | 2017-07-06 18:32 | DIAGNOSTIC IMAGING REPORT ---
THORACIC SPINE 3 VIEWS CLINICAL HISTORY: Midthoracic back pain of 2 weeks' duration. FINDINGS: AP, lateral, and swimmer's views of the thoracic spine are obtained. Correlation is made with chest CT dated 07/22/2010. The skeletal structures are well mineralized. There is no radiographic evidence of fracture or malalignment. Vertebral body height and alignment are maintained throughout the thoracic spine. The transverse processes and pedicles are grossly intact as seen on the frontal view. The disc spaces are maintained. The visualized lung parenchyma appears clear. IMPRESSION: Unremarkable radiographic assessment of the thoracic spine. Electronically signed by: Steven Thomas M.D. 07/06/2017 6:30 PM Dictated Date/Time: 07/06/2017 6:29 PM
[2017-07-06] MEDS ORDERED: NAPROXEN 250 MG TAB PO STA (18:38)
[2017-07-06] MEDS ORDERED: NAPR250T43 PO (18:52)
[2017-07-06 19:05] VITALS: BP 108/71; PULSE 110; O2SAT 98
[2017-07-06] MEDS ORDERED: VNTHFA/IN INH (19:48)
--- NOTE | 2017-07-06 21:53 | EMERGENCY ROOM VISIT NOTE ---
ED Visit Note First contact with patient: 17:44 Chief Complaint: Middle back pain. History of Present Illness: Ms. Ornelas is a 27-year-old white female who ambulates into the ED accompanied by 2 female friends complaining of thoracic back pain. Patient reports over the last couple of days while standing at work for long. Set time she would developed thoracic back pain with right sided prominence. After resting her pain would resolve. She describes it as an achy sensation. The pain is actually located in the T10-T11 area. Her pain is nonradiating. She reports she has been using [id number] medications without relief of discomfort and rest is the only thing that provides relief. Her pain is aggravated once she starts standing again. Associated with her pain she reports when it becomes severe she feels slightly lightheaded and she does feel slightly nauseated. The symptoms resolved after sitting down and relaxing. She denies recent trauma, previous significant injuries or surgeries, fevers, chills, sweats, skin eruptions, skin color changes, upper respiratory tract symptoms, cough, wheezing, shortness of breath, urinary symptoms, hematuria, abdominal pain, vomiting, vaginal bleeding, vaginal discharge, diarrhea, constipation, genital paresthesias, bowel and bladder dysfunction, extremity weakness/numbness/tingling. Review of Systems: As noted above in history of present illness. All body systems were reviewed and found to be negative as noted above. Past Medical History: (1) Noncompliance with medication regimen (2) Ovarian cyst (3) PTSD (post-traumatic stress disorder) (4) Suicidal ideation (5) Vaginal delivery Current Medications: Albuterol, trazodone, Lexapro, Vistaril Allergies to Medications: Toradol, tramadol. Social History: Patient is currently employed; she feels safe in her home environment; she admits to tobacco use. Physical Examination: Vital Signs: Date Time Temp Pulse Resp B/P (MAP) Pulse Ox O2 Delivery O2 Flow Rate FiO2 07/06/17 19:05 110 108/71 98 07/06/17 18:47 80 20 105/56 96 Room Air 07/06/17 17:30 36.3 90 20 104/63 99 Room Air GENERAL: 27-year-old female in mild distress due to pain, nontoxic-appearing, afebrile and hemodynamically stable. NEUROLOGICAL: Awake, alert and oriented to person, place and time. Answering questions appropriately and following commands. Normal gait. Good hand eye coordination. SKIN: Warm, dry and pink. No soft tissue eruptions or trauma noted. HEENT: Atraumatic and normocephalic. BACK: No tenderness over the bony cervical and lumbar spine. Mild tenderness in the paraspinous musculature on the right. No palpable spasm or muscle deficits. No swelling or erythema. No CVA tenderness. THORAX: Lungs sounds are clear to auscultation and equal bilaterally with symmetrical chest wall. ABDOMEN: Flat, soft and nontender. Positive bowel sounds in all quadrants. ED Course: Patient is assessed as noted above. Patient's medication list was reviewed. Thoracic Spine X-Rays: Were read by myself and the radiologist showing an unremarkable x-ray with good alignment, no fractures or subluxations, disc space maintain maintain and visible lung parenchyma appears clear. Patient was given 500 mg of naproxen by mouth for pain. Patient reports after lying on the x-ray table her pain exacerbated. Patient was educated about today's findings and instructed on her treatment plan ; she verbalized understanding and agreement with this plan. Clinical Impression: Thoracic back pain. Decision-Making: Initially my differential diagnosis I considered muscle spasm, muscle strain, disc disease, pyelonephritis, pancreatitis and other causes. Disposition: Patient discharged home in stable condition accompanied by friends ; prior to departure she was reassessed and subjectively reported her pain was at a level of 8/10. Plan: Patient was placed on a sliding pain scale of Tylenol and Naprosyn; other comfort measures including rest and ice were discussed with the patient. Patient was signed off work for 2 days. Patient was encouraged to follow-up with her PCP if no better in 4-5 days. Patient is encouraged return ED for worsening pain, abdominal pain, vomiting, fevers, urinary symptoms, extremity weakness/numbness/tingling or any new/ concerning symptoms
== END 2017-07-06 19:08 | disposition home or self-care (01) ==
LOC: C.EDB 17:17 → C.EDD 19:08
DX: M54.6 Pain in thoracic spine (principal); N83.209 Unspecified ovarian cyst, unspecified side; F17.200 Nicotine dependence, unspecified, uncomplicated; Z79.899 Other long term (current) drug therapy; Z88.8 Allergy status to other drugs, medicaments and biological substances

== ENCOUNTER 2017-07-11 15:39 | Emergency (ER) | payer OTHER ==
[~2017-07-11] VITALS: Ht 175.3 cm; Wt 82.4 kg
[~2017-07-11 15:39] MED LIST changes: -ATR25 PO; -DSY100 PO; +ESCI10TA17 PO; +HYDR1CAP85 PO; -LXP10 PO; -MCRB100 PO; +NAPR250T43 PO; +TRAZ100T29 PO; +VNTHFA/IN INH
[2017-07-11 15:46] VITALS: TEMP 36.6; Ht 175.3 cm; Wt 82.4 kg
[2017-07-11] MEDS ORDERED: SUMATRIPTAN SUCCINATE 6 MG/0.5 ML VIAL SQ STA (15:54)
--- NOTE | 2017-07-11 16:30 | DIAGNOSTIC IMAGING REPORT ---
CHEST 2 VIEWS ROUTINE CLINICAL HISTORY: Cough. COMPARISON STUDY: Chest radiograph April 29, 2017. FINDINGS: Lung volumes are normal. No pneumothorax or pleural effusion is present. There is no consolidation to suggest pneumonia. Cardiomediastinal silhouette is normal. Pulmonary vascularity is normal. IMPRESSION: No acute cardiopulmonary findings. Electronically signed by: Luan Urrutia M.D. 07/11/2017 4:28 PM Dictated Date/Time: 07/11/2017 4:28 PM
[2017-07-11] MEDS ORDERED: ONDA4TAB10 SL (16:42)
[2017-07-11] MEDS ORDERED: BENZ100C84 PO (16:42)
[2017-07-11] MEDS ORDERED: PRVHFAIN INH (16:42)
[2017-07-11] MEDS ORDERED: ONDANSETRON 4MG OD TAB PO ONE (16:45)
--- NOTE | 2017-07-11 17:11 | EMERGENCY ROOM VISIT NOTE ---
History Report prepared by Ignacio: Alexi Ferro Under the Supervision of: Dr. Hossein Gibbons M.D. First contact with patient: 15:48 Chief Complaint: ILLNESS Stated Complaint: MIGRAINE, VOMITING, COUGH History of Present Illness The patient is a 27 year old female who presents to the Emergency Room with complaints of persistent generalized illness beginning yesterday. She also complains of headache, vomiting, chills, cough, and sore throat. She began vomiting last night after a coughing fit. The patient denies chance of . She denies abdominal pain, diarrhea, or urinary symptoms. She did not have a flu shot this year. The patient was recently around a friend with pneumonia. She is a smoker. She states her headache feels like her prior migraines. Source of History: patient Onset: Yesterday Position: other (generalized) Quality: other (illness) Timing: other (persistent) Associated Symptoms: + chills, + sorethroat, + cough, + vomiting, No abdominal pain, No diarrhea, No urinary symptoms Review of Systems See HPI for pertinent positives & negatives. A total of 10 systems reviewed and were otherwise negative. Past Medical & Surgical Medical Problems: (1) Noncompliance with medication regimen (2) Ovarian cyst (3) PTSD (post-traumatic stress disorder) (4) Suicidal ideation (5) Vaginal delivery Family History Diabetes mellitus FH: migraines Hypertension Kidney disease or stones Seizures Social History Smoking Status: Current Every Day Smoker Alcohol Use: none Drug Use: none Marital Status: in relationship Housing Status: lives with family Occupation Status: unemployed Current/Historical Medications Scheduled Ondasetron Odt (Zofran Odt), 4 MG SL Q6H Scheduled PRN Albuterol (Ventolin Hfa), 2 PUFFS INH Q4H PRN for Cough Benzonatate (Tessalon Perles), 100 MG PO Q6 PRN for Cough Allergies Coded Allergies: Tramadol (Verified Allergy, Intermediate, VOMITING, 07/11/17) Ketorolac Tromethamine (Verified Adverse Reaction, Mild, nausea, 07/11/17) Physical Exam Vital Signs Date Time Temp Pulse Resp B/P (MAP) Pulse Ox O2 Delivery O2 Flow Rate FiO2 07/11/17 15:46 36.6 106 18 116/78 99 Room Air Physical Exam Constitutional: Vital signs reviewed. Eyes: Pupils are equal round reactive to light. Conjunctiva are noninjected. ENT: Pharynx is mildly erythematous without exudate. Mucous membranes are moist. Neck supple without meningeal signs. Respiratory: Clear to auscultation bilaterally. Breath sounds are equal bilaterally. Cardiovascular: Regular rate and rhythm. No rubs or gallops. GI: Soft, nondistended and nontender. Bowel sounds are present. Musculoskeletal: No peripheral edema. No lower extremity tenderness. Integumentary: No cyanosis. Neurological: The patient is awake and alert. Cranial nerves II-XII are intact. Motor is 5 out of 5 all extremities. Sensation is intact to light touch all extremities. Normal speech. No pronator drift. Psychiatric: Normal affect. Medical Decision & Procedures ER Provider Diagnostic Interpretation: X-ray results as stated below per interpretation by me and the radiologist: CHEST 2 VIEWS ROUTINE FINDINGS: Lung volumes are normal. No pneumothorax or pleural effusion is present. There is no consolidation to suggest pneumonia. Cardiomediastinal silhouette is normal. Pulmonary vascularity is normal. IMPRESSION: No acute cardiopulmonary findings. Electronically signed by: Luan Urrutia M.D. 07/11/2017 4:28 PM Medications Administered Medications (Trade) Dose Ordered Sig/Blanka Route Start Time Stop Time Status Last Admin Dose Admin Sumatriptan Succinate (Imitrex Sq Inj) 6 mg NOW STAT SQ 07/11/17 15:54 07/11/17 15:56 DC 07/11/17 16:47 6 MG Ondansetron HCl (Zofran Odt) 4 mg ONE ONCE PO 07/11/17 16:45 07/11/17 16:46 DC 07/11/17 16:47 4 MG ED Course 1550: The patient was evaluated in room C11B. A complete history and physical exam was performed. 1554: Ordered Imitrex Sq Inj 6 mg SQ. 1637: I checked in on the patient. She requested nausea medication prior to receiving the Imitrex. 1645: Ordered Zofran Inj 4 mg PO. 1700: Upon reevaluation, the patient appeared to have improvement of her symptoms. I discussed tonight's findings with her. She verbalized agreement of the treatment plan. The patient was discharged home. Medical Decision This is a 27-year-old female presents with a headache, sore throat and cough. Differential diagnosis includes migraine headache, tension headache, bronchitis , pneumonia, URI, strep pharyngitis. I did perform a limited focused review of portions of the patient's old chart on the electronic medical record. The patient was here July 06 for mid-back pain. She was here in June for a migraine headache and was treated with Imitrex. I did evaluate the patient as noted above. The patient has been ill for about 2 days. She complains of headache which is similar to her prior migraines. She is neurologically intact and does not have any meningeal signs. She does have a sore throat. I did obtain a rapid strep test which was negative. Throat culture is pending. The patient declined testing before x-ray stating that she is not sexually active and she is currently on her menses. I did order and personally review the patient's chest x-ray as described above. There is no evidence of pneumonia on x-ray. I did treat the patient with Imitrex 6 mg subcutaneous and a Zofran ODT. I did discuss the test results with the patient. I did recommend she follow up with her doctor and to stop smoking. She was discharged with a prescription for an albuterol MDI, Tessalon Perles and Zofran. Medication Reconcilliation Current Medication List: was personally reviewed by me Blood Pressure Screening Patient's blood pressure: Normal blood pressure Blood pressure disposition: Did not require urgent referral Impression Primary Impression: Acute bronchitis Additional Impression: Headache Scribe Attestation The scribe's documentation has been prepared under my direct and personally reviewed by me in its entirety. I confirm that the note above accurately reflects all work, treatment, procedures, and medical decision making performed by me. Departure Information Dispostion Home / Self-Care Prescriptions Ondasetron Odt (ZOFRAN ODT) 4 Mg Tab 4 MG SL Q6H for Nausea, #6 TAB Prov: Hossein Gibbons M.D. 07/11/17 Benzonatate (Tessalon Perles) 100 Mg Cap 100 MG PO Q6 Y for Cough, #10 CAP Prov: Hossein Gibbons M.D. 07/11/17 Albuterol (Ventolin Hfa) 60 Puffs/5400 Mcg Aers 2 PUFFS INH Q4H Y for Cough, #1 INHALER Prov: Hossein Gibbons M.D. 07/11/17 Referrals No Doctor, Assigned (PCP) Forms HOME CARE DOCUMENTATION FORM, IMPORTANT VISIT INFORMATION, WORK / SCHOOL INSTRUCTIONS Patient Instructions ED Upper Resp Infec No Abx Tx, Headache Pain, My [facility] Additional Instructions You have been examined and treated today on an emergency basis only. This is not a substitute for, or an effort to provide, complete comprehensive medical care. It is impossible to recognize and treat all injuries or illnesses in a single emergency department visit. It is therefore important that you follow up closely with your physician. Call as soon as possible for an appointment. Return for worsening symptoms or if you develop difficulty breathing or any other concerning symptoms. Problem Qualifiers Primary Impression: Acute bronchitis Bronchitis organism: unspecified organism Qualified Codes: J20.9 - Acute bronchitis, unspecified Additional Impression: Headache Headache type: unspecified Headache chronicity pattern: unspecified pattern Intractability: not intractable Qualified Codes: R51 - Headache
[2017-07-11 17:17] VITALS: BP 117/74; PULSE 87; O2SAT 98
== END 2017-07-11 17:18 | disposition home or self-care (01) ==
LOC: C.EDB 15:40 → C.EDC 17:18
DX: J20.9 Acute bronchitis, unspecified (principal); R51 Headache; F17.200 Nicotine dependence, unspecified, uncomplicated; Z83.3 Family history of diabetes mellitus; Z82.49 Family history of ischemic heart disease and other diseases of the circulatory system; Z82.0 Family history of epilepsy and other diseases of the nervous system

== ENCOUNTER 2017-08-02 14:47 | Emergency (ER) | payer OTHER ==
[~2017-08-02] VITALS: Ht 175.3 cm; Wt 84.4 kg
[~2017-08-02 14:47] MED LIST changes: +BENZ100C84 PO; -ESCI10TA17 PO; -HYDR1CAP85 PO; -NAPR250T43 PO; +ONDA4TAB10 SL; +PRVHFAIN INH; -TRAZ100T29 PO; -VNTHFA/IN INH
[2017-08-02 14:56] VITALS: TEMP 36.6; Ht 175.3 cm; Wt 84.4 kg
[2017-08-02] MEDS ORDERED: HYDROCODONE/ACETAMOPHEN 5/325MG TAB PO STA (15:06)
--- NOTE | 2017-08-02 15:12 | EMERGENCY ROOM VISIT NOTE ---
ED Visit Note First contact with patient: 15:01 CHIEF COMPLAINT: Toothache HISTORY OF PRESENT ILLNESS: This 27-year-old female presents the ER with chief complaint of left lower wisdom tooth pain. The patient states that she was eating fried she does with mac & cheese at [employer] at lunch time today and broke off her left lower wisdom tooth. Since that time she has pain in the area. She called her dentist and they told her they could not remove it for another 2 weeks. The patient denies any facial swelling or any neck pain. REVIEW OF SYSTEMS: 6 system review was performed and was negative unless stated otherwise in history of present illness. PMH: The patient is healthy; see chronic problem list SOCIAL HISTORY: Patient admits to tobacco use but denies any alcohol use PHYSICAL EXAMS: VITALS: Were reviewed. GENERAL: Patient is alert oriented in moderate distress secondary to tooth pain. MOUTH: Left lower wisdom tooth with diffuse decay and a portion of it missing. The surrounding gingiva without any erythema or swelling. FACE: No erythema or swelling noted. NECK: Supple, no lymphadenopathy noted. No carotid bruits noted. LUNGS: Clear auscultation without wheezes rales or rhonchi. CARDIAC: Regular rate and rhythm without murmur.. Pulses is full and equal throughout. EMERGENCY COURSE: The patient was evaluated. The patient was given [place] 5/325 mg. One tablet by mouth for pain. The patient was discharged home with a friend driving. DIAGNOSIS: Dental caries and dental fracture. DISCHARGE INSTRUCTIONS & TREATMENT: Apply dental wax as directed. Ibuprofen 600 mg every 6 hours with food for pain. Take amoxicillin as prescribed. Appointment with a dentist for definitive care. Problem List Medical Problems: (1) Noncompliance with medication regimen Status: Chronic (2) PTSD (post-traumatic stress disorder) Status: Chronic (3) Suicidal ideation Status: Resolved (4) Vaginal delivery Status: Resolved Current/Historical Medications Scheduled Ondasetron Odt (Zofran Odt), 4 MG SL Q6H Scheduled PRN Albuterol (Ventolin Hfa), 2 PUFFS INH Q4H PRN for Cough Benzonatate (Tessalon Perles), 100 MG PO Q6 PRN for Cough Allergies Coded Allergies: Tramadol (Verified Allergy, Intermediate, VOMITING, 07/11/17) Ketorolac Tromethamine (Verified Adverse Reaction, Mild, nausea, 07/11/17) Vital Signs Date Time Temp Pulse Resp B/P (MAP) Pulse Ox O2 Delivery O2 Flow Rate FiO2 08/02/17 14:56 36.6 104 20 113/81 99 Room Air Departure Information Referrals No Doctor, Assigned (PCP) Patient Instructions [facility]
[2017-08-02] MEDS ORDERED: AMOX500C3 PO (15:15)
[2017-08-02 15:32] VITALS: BP 134/76; PULSE 67; O2SAT 98
== END 2017-08-02 15:32 | disposition home or self-care (01) ==
LOC: C.EDB 14:49 → C.EDD 15:32
DX: K02.9 Dental caries, unspecified (principal); S02.5XXA Fracture of tooth (traumatic), initial encounter for closed fracture; X58.XXXA Exposure to other specified factors, initial encounter; Z72.0 Tobacco use; Z91.14 Patient's other noncompliance with medication regimen

== ENCOUNTER 2017-09-03 18:26 | Emergency (ER) | payer OTHER ==
[~2017-09-03] VITALS: Ht 175.3 cm; Wt 86.6 kg
[2017-09-03 18:28] VITALS: TEMP 36.5; Ht 175.3 cm; Wt 86.6 kg
[2017-09-03] MEDS ORDERED: SUMATRIPTAN SUCCINATE 6 MG/0.5 ML VIAL SQ STA (18:42)
[2017-09-03] MEDS ORDERED: OXYCODONE HCL IR 5 MG TAB (IMMEDIATE RELEASE) PO STA (18:42)
[2017-09-03] MEDS ORDERED: ONDANSETRON INJ 2 MG/ML 2 ML VIAL ONE (19:36)
[2017-09-03] MEDS ORDERED: ONDANSETRON 4MG OD TAB ONE (19:39)
--- NOTE | 2017-09-03 19:49 | DIAGNOSTIC IMAGING REPORT ---
R SHOULDER MIN 2 VIEWS ROUTINE CLINICAL HISTORY: Fall. COMPARISON: None FINDINGS: Alignment of the right shoulder is anatomic. There is no fracture. Joint spaces are preserved. There may be a bone island within the right humeral head. IMPRESSION: No acute fracture or dislocation of the right shoulder. Electronically signed by: Luan Urrutia M.D. 09/03/2017 7:47 PM Dictated Date/Time: 09/03/2017 7:46 PM
--- NOTE | 2017-09-03 19:50 | DIAGNOSTIC IMAGING REPORT ---
R WRIST MIN 3 VIEWS ROUTINE CLINICAL HISTORY: Trauma. COMPARISON: Right wrist radiographs June 14, 2015. FINDINGS: Alignment of the right wrist is anatomic. No fracture is identified. There is no acute fracture of the distal right radius or ulna. IMPRESSION: No acute fracture or dislocation of the right wrist. Electronically signed by: Luan Urrutia M.D. 09/03/2017 7:49 PM Dictated Date/Time: 09/03/2017 7:48 PM
--- NOTE | 2017-09-03 19:53 | DIAGNOSTIC IMAGING REPORT ---
R PELVIS/UNILATERAL HIP 2-3VIEWS CLINICAL HISTORY: Trauma. Pain. Evaluate for fracture. COMPARISON: CT of the abdomen and pelvis June 15, 2015. FINDINGS: The sacroiliac joints and symphysis pubis are intact. There is no acute fracture within the pelvis or hips. IMPRESSION: No acute fracture within the pelvis or hips. Electronically signed by: Luan Urrutia M.D. 09/03/2017 7:52 PM Dictated Date/Time: 09/03/2017 7:50 PM
--- NOTE | 2017-09-03 20:14 | DIAGNOSTIC IMAGING REPORT ---
CT OF THE HEAD WITHOUT CONTRAST CLINICAL HISTORY: Fall. Evaluate for bleed. COMPARISON STUDY: Head CT June 15, 2015. CT DOSE: 901.25 mGy.cm TECHNIQUE: Helical axial images of the head were obtained without IV contrast. Automated exposure control was utilized for the study. A dose lowering technique was utilized adhering to the principles of ALARA. FINDINGS: No acute intracranial hemorrhage, midline shift or mass effect is present. Ventricular system is normal. Basilar cisterns are patent. There are no extra-axial collections. Galaviz-white differentiation is maintained. There is no calvarial fracture. Visualized portions of the sinuses and mastoid air cells are clear. IMPRESSION: 1. No acute intracranial findings. 2. No calvarial fracture. Electronically signed by: Luan Urrutia M.D. 09/03/2017 8:13 PM Dictated Date/Time: 09/03/2017 8:10 PM
--- NOTE | 2017-09-03 20:16 | DIAGNOSTIC IMAGING REPORT ---
CT OF THE CERVICAL SPINE WITHOUT CONTRAST CLINICAL HISTORY: Fall. Evaluate for fracture. COMPARISON STUDY: Cervical spine CT June 15, 2015. TECHNIQUE: Helical axial images of the cervical spine were obtained without IV contrast. Sagittal and coronal reconstructions were viewed. A dose lowering technique was utilized adhering to the principles of ALARA. FINDINGS: Alignment of the cervical spine is anatomic. The craniocervical junction is intact. There is no acute fracture. The facet joints are intact. There is no prevertebral edema. No pneumothorax is shown within the lung apices. IMPRESSION: No acute cervical spine fracture or subluxation. Electronically signed by: Luan Urrutia M.D. 09/03/2017 8:15 PM Dictated Date/Time: 09/03/2017 8:13 PM
[2017-09-03 21:00] VITALS: BP 112/65; PULSE 67; O2SAT 98
--- NOTE | 2017-09-03 23:40 | EMERGENCY ROOM VISIT NOTE ---
History Report prepared by Ignacio: Adelina Epps Under the Supervision of: Dr. Hossein Gibbons M.D. First contact with patient: 18:35 Chief Complaint: FALL Stated Complaint: FELL,MIGRAINE,VOMTING,PAIN History of Present Illness The patient is a 27 year old female who presents to the Emergency Room with complaints of a worsening migraine due to a fall yesterday at 1100. She has been vomiting and has right wrist and shoulder pain due to her fall. She denies any LOC or fever. The patient reports she fell on ice when she was walking to the car and fell backwards. She reports she hit her head and had a migraine when she went to sleep last night and slept for 17 hours. She states she did not take Imitrex because she was not given a prescription for it by her doctor. She states she has not been able to follow up with her doctor since last time she was here for her migraine. She does state her migraine feels like her prior migraines and is located on the right posterior aspect of her head. It is worse with light. Source of History: patient Onset: 1100 yesterday Position: head Symptom Intensity: moderate Quality: other (throbbing) Timing: worsening Modifying Factors (Worsening): other (light) Associated Symptoms: + vomiting, No LOC, No fevers Note: Positive right wrist and shoulder pain Review of Systems I did review 10 or more systems which are negative unless otherwise indicated on the chart or HPI. Past Medical & Surgical Medical Problems: (1) Noncompliance with medication regimen (2) Ovarian cyst (3) PTSD (post-traumatic stress disorder) (4) Suicidal ideation (5) Vaginal delivery Family History Diabetes mellitus FH: migraines Hypertension Kidney disease or stones Seizures Social History Smoking Status: Never Smoker Alcohol Use: none Drug Use: none Marital Status: in relationship Housing Status: lives with family Occupation Status: unemployed Current/Historical Medications Scheduled PRN Albuterol (Ventolin Hfa), 2 PUFFS INH Q4H PRN for Cough Allergies Coded Allergies: Tramadol (Verified Allergy, Intermediate, VOMITING, 09/03/17) Ketorolac Tromethamine (Verified Adverse Reaction, Mild, nausea, 09/03/17) Physical Exam Vital Signs Date Time Temp Pulse Resp B/P (MAP) Pulse Ox O2 Delivery O2 Flow Rate FiO2 09/03/17 21:00 67 18 112/65 98 09/03/17 20:38 78 20 112/52 99 Room Air 09/03/17 19:26 78 20 99/63 99 Room Air 09/03/17 18:28 36.5 96 20 115/81 97 Room Air Physical Exam Constitutional: Vital signs reviewed. Eyes: Pupils are equal round reactive to light. Conjunctiva are noninjected. ENT: Pharynx is clear without erythema or exudate. Mucous membranes are moist. Mild midline tenderness to the mid cervical spine without step-off or deformity. Respiratory: Clear to auscultation bilaterally. Breath sounds are equal bilaterally. Cardiovascular: Regular rate and rhythm. No rubs or gallops. GI: Soft, nondistended and nontender. Bowel sounds are present. Musculoskeletal: No midline tenderness to the thoracic or sacral lumbar spine. Diffuse tenderness over the right shoulder without deformity. Tenderness to the distal right ulna and right hip without deformity. 1 cm bruise to the right lower lateral thigh. Integumentary: No cyanosis. Neurological: The patient is awake and alert. Cranial nerves II-XII are intact. Motor is 5 out of 5 all extremities. Sensation is intact to light touch all extremities. Normal speech. No pronator drift. Psychiatric: Normal affect. Medical Decision & Procedures ER Provider Diagnostic Interpretation: Radiology results as stated below per my review and the radiologist's interpretation: R WRIST MIN 3 VIEWS ROUTINE CLINICAL HISTORY: Trauma. COMPARISON: Right wrist radiographs June 14, 2015. FINDINGS: Alignment of the right wrist is anatomic. No fracture is identified. There is no acute fracture of the distal right radius or ulna. IMPRESSION: No acute fracture or dislocation of the right wrist. Electronically signed by: Luan Urrutia M.D. 09/03/2017 7:49 PM Dictated Date/Time: 09/03/2017 7:48 PM R SHOULDER MIN 2 VIEWS ROUTINE CLINICAL HISTORY: Fall. COMPARISON: None FINDINGS: Alignment of the right shoulder is anatomic. There is no fracture. Joint spaces are preserved. There may be a bone island within the right humeral head. IMPRESSION: No acute fracture or dislocation of the right shoulder. Electronically signed by: Luan Urrutia M.D. 09/03/2017 7:47 PM Dictated Date/Time: 09/03/2017 7:[address] OF THE HEAD WITHOUT CONTRAST CLINICAL HISTORY: Fall. Evaluate for bleed. COMPARISON STUDY: Head CT June 15, 2015. CT DOSE: 901.25 mGy.cm TECHNIQUE: Helical axial images of the head were obtained without IV contrast. Automated exposure control was utilized for the study. A dose lowering technique was utilized adhering to the principles of ALARA. FINDINGS: No acute intracranial hemorrhage, midline shift or mass effect is present. Ventricular system is normal. Basilar cisterns are patent. There are no extra-axial collections. Galaviz-white differentiation is maintained. There is no calvarial fracture. Visualized portions of the sinuses and mastoid air cells are clear. IMPRESSION: 1. No acute intracranial findings. 2. No calvarial fracture. Electronically signed by: Luan Urrutia M.D. 09/03/2017 8:13 PM Dictated Date/Time: 09/03/2017 8:[address] OF THE CERVICAL SPINE WITHOUT CONTRAST CLINICAL HISTORY: Fall. Evaluate for fracture. COMPARISON STUDY: Cervical spine CT June 15, 2015. TECHNIQUE: Helical axial images of the cervical spine were obtained without IV contrast. Sagittal and coronal reconstructions were viewed. A dose lowering technique was utilized adhering to the principles of ALARA. FINDINGS: Alignment of the cervical spine is anatomic. The craniocervical junction is intact. There is no acute fracture. The facet joints are intact. There is no prevertebral edema. No pneumothorax is shown within the lung apices. IMPRESSION: No acute cervical spine fracture or subluxation. Electronically signed by: Luan Urrutia M.D. 09/03/2017 8:15 PM Dictated Date/Time: 09/03/2017 8:13 PM R PELVIS/UNILATERAL HIP 2-3VIEWS CLINICAL HISTORY: Trauma. Pain. Evaluate for fracture. COMPARISON: CT of the abdomen and pelvis June 15, 2015. FINDINGS: The sacroiliac joints and symphysis pubis are intact. There is no acute fracture within the pelvis or hips. IMPRESSION: No acute fracture within the pelvis or hips. Electronically signed by: Luna Urrutia M.D. 09/03/2017 7:52 PM Dictated Date/Time: 09/03/2017 7:50 P Laboratory Results Test 09/03/17 18:42 Laboratory results as reviewed by me. Medications Administered Medications (Trade) Dose Ordered Sig/Blanka Route Start Time Stop Time Status Last Admin Dose Admin Sumatriptan Succinate (Imitrex Sq Inj) 6 mg NOW STAT SQ 09/03/17 18:42 09/03/17 18:46 DC 09/03/17 19:18 6 MG Oxycodone HCl (Roxicodone Immediate Rel Tab) 5 mg NOW STAT PO 09/03/17 18:42 09/03/17 18:46 DC 09/03/17 19:17 5 MG Ondansetron HCl (Zofran Odt) 4 mg STK-MED ONCE .ROUTE 09/03/17 19:39 09/03/17 19:40 DC 09/03/17 19:41 4 MG ED Course 1829: The patient was evaluated in room B9. A complete history and physical exam was performed. 1841: Ordered Oxycodone HCl 5 mg Po Imitrex Sq Inj 6 mg SQ 1929: I checked on the patient at this time. She was asking for something for nausea. 1935: Ordered Zofran Inj 4mg 1938: Ordered Zofran Inj 4mg 2004: I checked on the patient at this time. She is feeling better. Her GCS is 15. 0: Upon reevaluation, the patient appeared to have improvement of her symptoms. I discussed tonrae's findings with poncho. She verbalized agreement of the treatment plan. She was discharged home. Medical Decision This is a 27-year-old female who presents with headache and injuries after fall. Differential diagnosis includes migraine headache, intracranial hemorrhage, concussion, contusion, skull fracture, fracture. I did perform a limited focused review of portions of the patient's old chart on the electronic medical record. The patient was seen by me on July 11, 2017 for a migraine and I treated her with Zofran and Imitrex. I did evaluate the patient as noted above. The patient presents with a head injury after mechanical fall yesterday. She states that she has since developed a headache which is identical to her previous migraine headaches. I did examine the patient as noted above. She is neurologically intact. I did treat her with Imitrex subcutaneous. She was also given oxycodone. Urine test was negative. She was given Zofran ODT. I did order and personally review the patient's x-rays as described above. There is no evidence of acute fracture or dislocation. I did order a CT of the head and cervical spine. I did review the images myself as well as the radiology report as described above. There is no evidence of intracranial hemorrhage or fracture to the cervical spine. I did reassess patient. She states she is feeling much better. I did discuss the test results with her. She was discharged with head injury precautions. She was advised follow up with her doctor. She states that she will make an appointment. Head Trauma GCS Score: 15 Medication Reconcilliation Current Medication List: was personally reviewed by me Blood Pressure Screening Patient's blood pressure: Normal blood pressure Blood pressure disposition: Did not require urgent referral Impression Primary Impression: Acute head injury Additional Impressions: Migraine Injury of right upper extremity Injury of right hip Scribe Attestation The scribe's documentation has been prepared under my direct and personally reviewed by me in its entirety. I confirm that the note above accurately reflects all work, treatment, procedures, and medical decision making performed by me. Departure Information Dispostion Home / Self-Care Referrals No Doctor, Assigned (PCP) Patient Instructions My [facility] Additional Instructions You have been examined and treated today on an emergency basis only. This is not a substitute for, or an effort to provide, complete comprehensive medical care. It is impossible to recognize and treat all injuries or illnesses in a single emergency department visit. It is therefore important that you follow up closely with your physician. Call as soon as possible for an appointment. Return for worsening symptoms or if you develop fever, numbness or weakness on one side of your body, difficulties with your speech or walking, or any other concerning symptoms. Problem Qualifiers Primary Impression: Acute head injury Encounter type: initial encounter Qualified Codes: S09.90XA - Unspecified injury of head, initial encounter Additional Impressions: Migraine Migraine type: unspecified Status migrainosus presence: without status migrainosus Intractability: not intractable Qualified Codes: G43.909 - Migraine, unspecified, not intractable, without status migrainosus Injury of right upper extremity Encounter type: initial encounter Qualified Codes: S49.91XA - Unspecified injury of right shoulder and upper arm, initial encounter Injury of right hip Encounter type: initial encounter Qualified Codes: S79.911A - Unspecified injury of right hip, initial encounter
== END 2017-09-03 21:00 | disposition home or self-care (01) ==
LOC: C.EDB 18:27
DX: S09.90XA Unspecified injury of head, initial encounter (principal); G43.909 Migraine, unspecified, not intractable, without status migrainosus; S49.91XA Unspecified injury of right shoulder and upper arm, initial encounter; S69.91XA Unspecified injury of right wrist, hand and finger(s), initial encounter; S79.911A Unspecified injury of right hip, initial encounter; Z87.42 Personal history of other diseases of the female genital tract; Z88.6 Allergy status to analgesic agent; Z82.49 Family history of ischemic heart disease and other diseases of the circulatory system; Z82.0 Family history of epilepsy and other diseases of the nervous system; Z83.3 Family history of diabetes mellitus; Z84.1 Family history of disorders of kidney and ureter; Z84.89 Family history of other specified conditions; W19.XXXA Unspecified fall, initial encounter

== ENCOUNTER 2017-10-19 00:54 | Emergency (ER) | payer OTHER ==
[~2017-10-19] VITALS: Ht 175.3 cm; Wt 87.3 kg
[~2017-10-19 00:54] MED LIST changes: -BENZ100C84 PO; -ONDA4TAB10 SL
[2017-10-19 00:58] VITALS: Ht 175.3 cm; Wt 87.3 kg
--- NOTE | 2017-10-19 01:25 | EMERGENCY ROOM VISIT NOTE ---
History Report prepared by Ignacio: Zain Callejas Under the Supervision of: Dr. Narcisa Hart D.O. First contact with patient: 01:04 Chief Complaint: MENTAL HEALTH EVALUATION Stated Complaint: Voluntary Mental Health Eval History of Present Illness The patient is a 27 year old female who presents to the Emergency Room with complaints of constant suicidal ideations beginning this morning. The patient states she has been under a large amount of stress over the past few days with her family. She reports her great-grandmother just passed and her mother would not let her go to the . The patient notes she just lost her kids for good , and they were taken because she could not get off work and go to the . She states she went to her friend's house to cry and vent. The patient reports her friend called the police because the patient said she was going to jump out of her apartment window and kill herself. She notes she has been admitted three times, with the most recent admittance being a year ago. The patient states she voluntarily came into the ED by police because she did not want to be 302ed. She reports she does not see her psychiatrist regularly. The patient notes she stopped taking her medication because it does not work unless she has someone to talk to. She states she lives alone. The patient reports she smoked marijuana a few days ago to try and cope with her great-grandmothers passing, but it did not help. She notes she has not been eating because she does not have food in her house since she lost all financial support. The patient states she will drink a glass of tap water a day to make sure she is getting some fluids. She reports she just started working under her friend, and she will not get paid for another two weeks. The patient notes her LNMP was three weeks ago. She denies abdominal pain, trouble urinating, and the chance of being . The patient states she is willing to be evaluated for further psychiatric care. Source of History: patient Onset: this morning Quality: other (sucidial ideations) Timing: constant Associated Symptoms: No abdominal pain Note: Associated symptoms: large amount of stress, stopped taking medications, decreased eating, decreased fluid intake Denies: trouble urinating, the chance of being Review of Systems See HPI for pertinent positives & negatives. A total of 10 systems reviewed and were otherwise negative. Past Medical & Surgical Medical Problems: (1) Noncompliance with medication regimen (2) Ovarian cyst (3) PTSD (post-traumatic stress disorder) (4) Suicidal ideation (5) Vaginal delivery Family History Diabetes mellitus FH: migraines Hypertension Kidney disease or stones Seizures Social History Smoking Status: Current Every Day Smoker Alcohol Use: none Drug Use: none Marital Status: in relationship Housing Status: lives alone Occupation Status: unemployed Current/Historical Medications Scheduled Cephalexin Monohydrate (Keflex), 500 MG PO TID Escitalopram (Lexapro), 10 MG PO HS Trazodone Hcl (Trazodone), 100 MG PO HS Scheduled PRN Hydroxyzine Pamoate (Vistaril), 50 MG PO UD PRN for Anxiety Allergies Coded Allergies: Tramadol (Verified Allergy, Intermediate, VOMITING, 09/03/17) Ketorolac Tromethamine (Verified Adverse Reaction, Mild, nausea, 09/03/17) Physical Exam Vital Signs Date Time Temp Pulse Resp B/P (MAP) Pulse Ox O2 Delivery O2 Flow Rate FiO2 10/19/17 06:47 36.8 87 18 119/58 97 Room Air 10/19/17 00:58 36.7 87 18 120/82 97 Room Air Physical Exam HEENT: Head - normocephalic and atraumatic Pupils are equal, round, and reactive to light. Extraocular eye muscles are intact, and sclera are anicteric. Nose - moist nasal mucosa without discharge. Mouth - dry buccal mucosa. Lips are cracked. Oropharynx is nonerythematous and there is no tonsillar exudate or edema noted. Neck: Supple; no JVD, nuchal rigidity, cervical lymphadenopathy. Heart: Regular rate and rhythm. There is a normal S1 and S2 with no murmurs, clicks, or gallops appreciated. Lungs: Clear to auscultation bilaterally with no wheezes, rales, or rhonchi. Abdomen: Soft, completely nontender, nondistended, with good bowel sounds. There are no palpable pulsatile masses or hepatosplenomegaly. There is no guarding, rigidity, or rebound noted. Extremities: No evidence of cyanosis, clubbing, or edema. There are easily palpable peripheral pulses. Skin: warm and dry with good turgor and no rashes. Psychiatric: Patient seems depressed, tearful at times, and is positive for suicidal ideations with a plan. Medical Decision & Procedures Laboratory Results 10/19/17 01:40 10/19/17 01:40 Test 10/19/17 01:13 10/19/17 01:40 Urine Color YELLOW Urine Appearance CLEAR (CLEAR) Urine pH 5.5 (4.5-7.5) Urine Specific [place] 1.028 (1.000-1.030) Urine Protein NEG (NEG) Urine Glucose (UA) NEG (NEG) Urine Ketones TRACE (NEG) Urine Occult Blood NEG (NEG) Urine Nitrite NEG (NEG) Urine Bilirubin NEG (NEG) Urine Urobilinogen NEG (NEG) Urine Leukocyte Esterase MODERATE (NEG) Urine WBC (Auto) 10-30 /hpf (0-5) Urine RBC (Auto) 0-4 /hpf (0-4) Urine Hyaline Casts (Auto) 1-5 /lpf (0-5) Urine Epithelial Cells (Auto) >30 /lpf (0-5) Urine Bacteria (Auto) 3+ (NEG) Urine Test NEG (NEG) Urine Opiates Screen NEG (NEG) Urine Methadone, Qualitative NEG (NEG) Urine Barbiturates NEG (NEG) Urine Phencyclidine (PCP) Level NEG (NEG) Ur Amphetamine/Methamphetamine NEG (NEG) MDMA (Ecstasy) Screen NEG (NEG) Urine Benzodiazepines Screen NEG (NEG) Urine Cocaine Metabolite NEG (NEG) Urine Marijuana (THC) POS (NEG) Red Blood Count 4.51 M/uL (4.2-5.4) Mean Corpuscular Volume 90.5 fL (80-100) Mean Corpuscular Hemoglobin 30.4 pg (25-34) Mean Corpuscular Hemoglobin Concent 33.6 g/dl (32-36) RDW Standard Deviation 47.5 fL (36.4-46.3) RDW Coefficient of Variation 14.4 % (11.5-14.5) Mean Platelet Volume 10.1 fL (7.4-10.4) Anion Gap 7.0 mmol/L (3-11) Est Creatinine Clear Calc Drug Dose 158.4 ml/min Estimated GFR () 143.7 Estimated GFR (Non- 124.0 BUN/Creatinine Ratio 26.9 (10-20) Calcium Level 8.8 mg/dl (8.5-10.1) Total Bilirubin 0.2 mg/dl (0.2-1) Direct Bilirubin < 0.1 mg/dl (0-0.2) Aspartate Amino Transf (AST/SGOT) 16 U/L (15-37) Alanine Aminotransferase (ALT/SGPT) 21 U/L (12-78) Alkaline Phosphatase 80 U/L (45-117) Total Protein 8.3 gm/dl (6.4-8.2) Albumin 3.9 gm/dl (3.4-5.0) Thyroid Stimulating Hormone (TSH) 3.130 uIu/ml (0.300-4.500) Salicylates Level < 1.7 mg/dl (2.8-20) Acetaminophen Level < 2 ug/ml (10-30) Ethyl Alcohol mg/dL < 3.0 mg/dl (0-3) Laboratory results per my review. ED Course 0119: Past medical records reviewed. The patient was evaluated in room A05. A complete history and physical exam was performed. Labs were drawn as above. 0248: The patient is medically cleared. 0420: The patient has consented to go to three different psychiatric facilities. All were full. The bed search was suspended for the night. 0700: The patient was signed out to Dr. Vanegas at the change of shift. Please refer to his note for further management and care for the patient. Medical Decision The patient is a 27 year old female who presents to the ED with suicidal ideations. Differential diagnosis includes depression, anxiety, insomnia, dehydration, suicidal ideations. Lab results show: normal WBC, stable H&H, normal renal function and glucose, normal LFTs and TSH. Tox screen is positive for marijuana, negative for alcohol , and negative for salicylate. is negative. Urinalysis: trace ketones , 3+ bacteria, moderate leukocyte esterase, 10-30 WBC present. This is a 27-year-old female patient who presents to the emergency department with thoughts of suicide. She admits to being increasingly depressed secondary to some family issues. She had plans to jump from a third story window in her apartment building. The patient has a history of mental health issues and has had previous inpatient psychiatric stays. She is willing to admit herself again voluntarily. The bed search was suspended overnight. Will resume in the morning. The case was signed out to Dr. Vanegas. Medication Reconcilliation Current Medication List: was personally reviewed by me Blood Pressure Screening Patient's blood pressure: Normal blood pressure Blood pressure disposition: Did not require urgent referral Impression Primary Impression: Suicidal ideation Scribe Attestation The scribe's documentation has been prepared under my direction and personally reviewed by me in its entirety. I confirm that the note above accurately reflects all work, treatment, procedures, and medical decision making performed by me. Departure Information Dispostion Still a Patient Prescriptions Cephalexin Monohydrate (Keflex) 500 Mg Cap 500 MG PO TID for 7 Days, #21 CAP Prov: Mark Vanegas M.D. 10/19/17 Referrals No Doctor, Assigned (PCP) Patient Instructions My [facility]
[2017-10-19] MEDS ORDERED: TRAZ100T29 PO (01:44)
[2017-10-19] MEDS ORDERED: HYDR50CA2 PO (01:44)
[2017-10-19] MEDS ORDERED: ESCI10TA17 PO (01:44)
[2017-10-19 02:17] LABS: HEMATOCRIT 40.8 % (37-47); HEMOGLOBIN 13.7 g/dL (12.0-16.0); MEAN CELL VOLUME 90.5 fL (80-100); MEAN CORPUSCULAR HEMOGLOBIN 30.4 pg (25-34); MEAN CORPUSCULAR HGB CONC 33.6 g/dl (32-36); MEAN PLATELET VOLUME 10.1 fL (7.4-10.4); PLATELET COUNT 299 K/uL (130-400); RED CELL DISTRIBUTION WIDTH CV 14.4 % (11.5-14.5); RED CELL DISTRIBUTION WIDTH SD 47.5 fL (36.4-46.3); WHITE BLOOD COUNT 6.56 K/uL (4.8-10.8)
[2017-10-19 02:34] LABS: ALBUMIN 3.9 gm/dl (3.4-5.0); ALT/SGPT 21 U/L (12-78); AST/SGOT 16 U/L (15-37); BLOOD UREA NITROGEN 17 mg/dl (7-18); CALCIUM 8.8 mg/dl (8.5-10.1); CARBON DIOXIDE 23 mmol/L (21-32); CREATININE 0.64 mg/dl (0.60-1.20); GLUCOSE 79 mg/dl (70-99); POTASSIUM 3.7 mmol/L (3.5-5.1); SODIUM 136 mmol/L (136-145)
[2017-10-19 02:44] LABS: ALKALINE PHOSPHATASE 80 U/L (45-117); TOTAL PROTEIN 8.3 gm/dl (6.4-8.2)
[2017-10-19 06:47] VITALS: TEMP 36.8
[2017-10-19] MEDS ORDERED: CEPH500C PO (07:35)
[2017-10-19] MEDS ORDERED: CEPHALEXIN MONOHYDRATE 250 MG CAP PO ONE (07:45)
[2017-10-19] MEDS ORDERED: CEPHALEXIN MONOHYDRATE 250 MG CAP PO STA (11:31)
[2017-10-19 12:45] VITALS: BP 115/75; PULSE 74; O2SAT 98
--- NOTE | 2017-10-19 14:26 | EMERGENCY ROOM VISIT NOTE ---
ED Visit Note First contact with patient: 07:34 27 yr old female with worsening depression and feeling suicidal. Initially medically cleared by Dr Hart and bed search started when signed out to me. Patient evaluated and feeling well. Denies urinary symptoms. Admits left lower posterior molar pain secondary to infection post breaking a tooth. No evidence of abscess though there is some erythema back there. Seems reasonable starting some abx which will go with Keflex as this previously has worked well. She is stable and in no distress declines pain medications. Rx given. Accepted to [facility] and transferred there without issue.
--- NOTE | 2017-10-21 15:13 | Pharmacy Progress Note ---
ED Pharmacist Culture FollowUp Date of Service: Oct 21, 2017. Patient was sent home with a prescription for cephalexin, which should cover the E. coli growing from the patient's urine culture, as evidenced by reported sensitivity to cefazolin.
== END 2017-10-19 12:45 ==
LOC: EDSEX 00:54 → EDBD 00:54 → C.EDA 00:55
DX: R45.851 Suicidal ideations (principal); D72.829 Elevated white blood cell count, unspecified; F12.90 Cannabis use, unspecified, uncomplicated; F43.10 Post-traumatic stress disorder, unspecified; F17.200 Nicotine dependence, unspecified, uncomplicated; Z88.6 Allergy status to analgesic agent; Z83.3 Family history of diabetes mellitus; Z82.49 Family history of ischemic heart disease and other diseases of the circulatory system; Z82.0 Family history of epilepsy and other diseases of the nervous system; Z84.1 Family history of disorders of kidney and ureter

== ENCOUNTER 2017-12-16 15:12 | Emergency (ER) | payer OTHER ==
[~2017-12-16] VITALS: Ht 175.3 cm; Wt 86.3 kg
[~2017-12-16 15:12] MED LIST changes: +ESCI10TA17 PO; +HYDR50CA2 PO; -PRVHFAIN INH; +TRAZ100T29 PO
[2017-12-16 15:18] VITALS: TEMP 36.7; Ht 175.3 cm; Wt 86.3 kg
[2017-12-16] MEDS ORDERED: PROCHLORPERAZINE 5 MG/ML 2 ML VIAL IV STA (15:28)
[2017-12-16] MEDS ORDERED: DiphenhydrAMINE HCL 50 MG/ML VIAL IV STA (15:28)
[2017-12-16] MEDS ORDERED: SODIUM CHLORIDE 0.9% 1000ML 1,000 ML IV STA (15:28)
[2017-12-16] MEDS ORDERED: MULT-240 PO (16:01)
[2017-12-16] MEDS ORDERED: ACET-1256 PO (16:02)
[2017-12-16 16:07] LABS: BASO % 0.7 %; BASO ABS # 0.04 K/uL (0-0.2); EOS % 2.1 %; EOS ABS # 0.12 K/uL (0-0.5); HEMATOCRIT 37.6 % (37-47); HEMOGLOBIN 12.5 g/dL (12.0-16.0); IG# 0.01 K/uL (0.00-0.02); LYMPH % 43.3 %; LYMPH ABS # 2.47 K/uL (1.2-3.4); MEAN CELL VOLUME 89.1 fL (80-100); MEAN CORPUSCULAR HEMOGLOBIN 29.6 pg (25-34); MEAN CORPUSCULAR HGB CONC 33.2 g/dl (32-36); MEAN PLATELET VOLUME 9.5 fL (7.4-10.4); MONO % 8.8 %; NEUT % 44.9 %; NEUT ABS # 2.57 K/uL (1.4-6.5); PLATELET COUNT 279 K/uL (130-400); RED CELL DISTRIBUTION WIDTH CV 15.3 % (11.5-14.5); RED CELL DISTRIBUTION WIDTH SD 49.3 fL (36.4-46.3); WHITE BLOOD COUNT 5.71 K/uL (4.8-10.8)
[2017-12-16 16:29] LABS: ALBUMIN 3.8 gm/dl (3.4-5.0); ALKALINE PHOSPHATASE 76 U/L (45-117); ALT/SGPT 24 U/L (12-78); AST/SGOT 19 U/L (15-37); BLOOD UREA NITROGEN 13 mg/dl (7-18); CALCIUM 9.2 mg/dl (8.5-10.1); CARBON DIOXIDE 26 mmol/L (21-32); GLUCOSE 72 mg/dl (70-99); LIPASE 126 U/L (73-393); POTASSIUM 3.7 mmol/L (3.5-5.1); SODIUM 141 mmol/L (136-145); TOTAL PROTEIN 7.7 gm/dl (6.4-8.2)
[2017-12-16 18:17] VITALS: BP 98/58; PULSE 68; O2SAT 97
--- NOTE | 2017-12-16 19:45 | EMERGENCY ROOM VISIT NOTE ---
History Report prepared by Ignacio: Zain Callejas Under the Supervision of: Dr. Reid Saavedra D.O. First contact with patient: 15:23 Chief Complaint: HEADACHE Stated Complaint: MIGRAINES,DIZZINESS,BACK PAIN History of Present Illness The patient is a 27 year old female who presents to the Emergency Room with complaints of a constant headache beginning this morning at 0600. The patient states she has a history of migraines for the past five years and typically gets them every six months. She reports this feels like her typical migraine except it is located in the front right of her head and not in the back. The patient notes she ran out of ImBorqsx and has not gotten her prescription filled. She states she has tried Tylenol and ibuprofen for her discomfort, and it is not working. The patient reports her last migraine as six months ago, and her longest migraine lasted for 3 weeks. She states her head feels like it is being stabbed and throbbing. She notes she developed back pain last evening. The patient states she notices her back pain tends to cause her migraines. She reports her back pain worsens with standing, and twisting, turning, or bending doesn't worsen her back pain. The patient notes she is also experiencing blurred vision with spots. She denies chest pain, shortness of breath, nausea, vomiting, fevers, numbness or tingling to her groin, arms, or legs, abdominal pain, burning with urination, and urinating more frequently. The patient states she is currently on her menstrual period. Source of History: patient Onset: this morning at 0600 Position: head Quality: ache Timing: constant Associated Symptoms: + back pain, No chest pain, No SOB, No nausea, No vomiting, No numbness (to her groin, arms, or legs) Note: Associated symptoms: blurred vision with spots Denies: tingling to her groin, arms, or legs, burning with urination, and urinating more frequently Review of Systems See HPI for pertinent positives & negatives. A total of 10 systems reviewed and were otherwise negative. Past Medical & Surgical Medical Problems: (1) Noncompliance with medication regimen (2) Ovarian cyst (3) PTSD (post-traumatic stress disorder) (4) Suicidal ideation (5) Vaginal delivery Family History Diabetes mellitus FH: migraines Hypertension Kidney disease or stones Seizures Social History Smoking Status: Current Some Day Smoker Alcohol Use: none Drug Use: none Marital Status: in relationship Housing Status: lives alone Occupation Status: unemployed Current/Historical Medications Scheduled Multiple Vitamins W/ Minerals (Womens One Daily), 1 TAB PO DAILY Scheduled PRN Acetaminophen (Tylenol), 500 MG PO UD PRN for Pain or Fever Trazodone Hcl (Trazodone), 100 MG PO HS PRN for Sleep Allergies Coded Allergies: Tramadol (Verified Allergy, Intermediate, VOMITING, 09/03/17) Ketorolac Tromethamine (Verified Adverse Reaction, Mild, nausea, 09/03/17) Physical Exam Vital Signs Date Time Temp Pulse Resp B/P (MAP) Pulse Ox O2 Delivery O2 Flow Rate FiO2 12/16/17 18:17 68 18 98/58 97 12/16/17 17:07 98 18 116/68 98 Room Air 12/16/17 15:18 36.7 75 20 106/73 96 Room Air Physical Exam GENERAL: Sitting up in bed, alert, well appearing, well nourished, no distress, non-toxic EYE EXAM: normal conjunctiva. PERRL and EOM's intact. OROPHARYNX: no exudate, no erythema, lips, buccal mucosa, and tongue normal and mucous membranes are moist NECK: supple, no nuchal rigidity, no adenopathy, non-tender LUNGS: Clear to auscultation. Normal chest wall mechanics HEART: no murmurs, S1 normal and S2 normal ABDOMEN: abdomen soft, non-tender, normo-active bowel sounds, no masses, no rebound or guarding. BACK: Back is symmetrical on inspection and there is no deformity, no midline tenderness, no CVA tenderness. SKIN: no rashes and no bruising UPPER EXTREMITIES: upper extremities are grossly normal. LOWER EXTREMITIES: No pitting edema. NEURO EXAM: Normal sensorium, cranial nerves II-XII intact, normal speech, no weakness of arms, no weakness of legs. No drift. Finger to nose intact. Gross sensation intact. Ambulates without difficultly. Medical Decision & Procedures Laboratory Results 12/16/17 15:54 Red Blood Count 4.22, Mean Corpuscular Volume 89.1, Mean Corpuscular Hemoglobin 29.6, Mean Corpuscular Hemoglobin Concent 33.2, Mean Platelet Volume 9.5, Neutrophils (%) (Auto) 44.9, Lymphocytes (%) (Auto) 43.3, Monocytes (%) (Auto) 8.8, Eosinophils (%) (Auto) 2.1, Basophils (%) (Auto) 0.7, Neutrophils # (Auto) 2.57, Lymphocytes # (Auto) 2.47, Monocytes # (Auto) 0.50, Eosinophils # (Auto) 0.12, Basophils # (Auto) 0.04 12/16/17 15:54 Test 12/16/17 15:45 12/16/17 15:54 Urine Color YELLOW Urine Appearance CLEAR (CLEAR) Urine pH 7.0 (4.5-7.5) Urine Specific Banner 1.023 (1.000-1.030) Urine Protein NEG (NEG) Urine Glucose (UA) NEG (NEG) Urine Ketones NEG (NEG) Urine Occult Blood 3+ (NEG) Urine Nitrite NEG (NEG) Urine Bilirubin NEG (NEG) Urine Urobilinogen NEG (NEG) Urine Leukocyte Esterase NEG (NEG) Urine WBC (Auto) 1-5 /hpf (0-5) Urine RBC (Auto) 10-30 /hpf (0-4) Urine Hyaline Casts (Auto) 1-5 /lpf (0-5) Urine Epithelial Cells (Auto) 10-20 /lpf (0-5) Urine Bacteria (Auto) NEG (NEG) Urine Test NEG (NEG) White Blood Count 5.71 K/uL (4.8-10.8) Red Blood Count 4.22 M/uL (4.2-5.4) Hemoglobin 12.5 g/dL (12.0-16.0) Hematocrit 37.6 % (37-47) Mean Corpuscular Volume 89.1 fL (80-100) Mean Corpuscular Hemoglobin 29.6 pg (25-34) Mean Corpuscular Hemoglobin Concent 33.2 g/dl (32-36) Platelet Count 279 K/uL (130-400) Mean Platelet Volume 9.5 fL (7.4-10.4) Neutrophils (%) (Auto) 44.9 % Lymphocytes (%) (Auto) 43.3 % Monocytes (%) (Auto) 8.8 % Eosinophils (%) (Auto) 2.1 % Basophils (%) (Auto) 0.7 % Neutrophils # (Auto) 2.57 K/uL (1.4-6.5) Lymphocytes # (Auto) 2.47 K/uL (1.2-3.4) Monocytes # (Auto) 0.50 K/uL (0.11-0.59) Eosinophils # (Auto) 0.12 K/uL (0-0.5) Basophils # (Auto) 0.04 K/uL (0-0.2) RDW Standard Deviation 49.3 fL (36.4-46.3) RDW Coefficient of Variation 15.3 % (11.5-14.5) Immature Granulocyte % (Auto) 0.2 % Immature Granulocyte # (Auto) 0.01 K/uL (0.00-0.02) Anion Gap 7.0 mmol/L (3-11) Est Creatinine Clear Calc Drug Dose 144.0 ml/min Estimated GFR () 139.6 Estimated GFR (Non- 120.4 BUN/Creatinine Ratio 18.9 (10-20) Calcium Level 9.2 mg/dl (8.5-10.1) Total Bilirubin 0.2 mg/dl (0.2-1) Direct Bilirubin < 0.1 mg/dl (0-0.2) Aspartate Amino Transf (AST/SGOT) 19 U/L (15-37) Alanine Aminotransferase (ALT/SGPT) 24 U/L (12-78) Alkaline Phosphatase 76 U/L (45-117) Total Protein 7.7 gm/dl (6.4-8.2) Albumin 3.8 gm/dl (3.4-5.0) Lipase 126 U/L (73-393) Laboratory results per my review. Medications Administered Medications (Trade) Dose Ordered Sig/Blanka Route Start Time Stop Time Status Last Admin Dose Admin Diphenhydramine HCl (Benadryl Inj) 50 mg NOW STAT IV 12/16/17 15:28 12/16/17 15:30 DC 12/16/17 16:05 50 MG Prochlorperazine Edisylate (Compazine Inj) 10 mg NOW STAT IV 12/16/17 15:28 18 15:30 DC 12/16/17 16:06 10 MG Sodium Chloride 1,000 ml @ 999 mls/hr Q1H1M STAT IV 12/16/17 15:28 12/16/17 16:28 DC 12/16/17 16:05 999 MLS/HR ED Course ED COURSE: Vital signs were reviewed and showed normal vitals. The patients medical record was reviewed The above diagnostic studies were performed and reviewed. ED treatments and interventions as stated above. 1523: The patient was evaluated in room B03B. A complete history and physical examination was performed. 1528: Ordered Sodium Chloride 1000 ml @ 999 mls/hr IV, Compazine 10mg IV, Benadryl 50mg IV 1756: Upon reevaluation, the patient is feels better. I discussed the risks and benefits of an LP. She declined. I discussed my findings with the patient and she understands and agrees with the treatment plan. Based on the patients age, coexisting illnesses, exam and lab findings the decision to treat as an outpatient was made. The patient remained stable while under my care. The patient appeared well at the time of discharge. Medical Decision Differential Diagnosis includes but is not limited to headache, tension headache , cluster headache, migraine, subarachnoid hemorrhage, meningitis, mass, central venous thrombus, concussion, trauma and epidural/subdural hemorrhage. Patient is a 27-year-old female who presents the ER for headache which is consistent and feels exactly like her previous migraines. She notes that she ran out of her medications at home and Tylenol is not working. She also has faint right lower back pain. Back pain is reproducible on exam. No urinary symptoms. Neurologically intact. CBC along with BMP, LFTs, bilirubin lipase is unremarkable UA was negative. was negative. No signs of meningitis or encephalitis. Vitals are stable. Afebrile. Patient was updated at bedside feeling significant better following IV Compazine and Benadryl. She was discharged follow-up PCP as an outpatient. Discussed with Pt concerning signs and symptoms to watch out for. Pt was instructed to follow up with their PCP and discussed with the patient their option to return to the ED at anytime for persistent or worsening symptoms. The appropriate anticipatory guidance and out-patient management, including indications for return to the emergency department, were explained at length to the patient and understood. Medication Reconcilliation Current Medication List: was personally reviewed by me Blood Pressure Screening Patient's blood pressure: Normal blood pressure Blood pressure disposition: Did not require urgent referral Impression Primary Impression: Headache Scribe Attestation The scribe's documentation has been prepared under my direction and personally reviewed by me in its entirety. I confirm that the note above accurately reflects all work, treatment, procedures, and medical decision making performed by me. Departure Information Dispostion Home / Self-Care Referrals Oli Geronimo M.D. (PCP) Forms HOME CARE DOCUMENTATION FORM, IMPORTANT VISIT INFORMATION Patient Instructions Headache Pain, My [facility] Additional Instructions Please follow up with your primary care doctor with in the next 24 hours. Any worsening of your symptoms, please return to the ED immediately. This includes any fevers greater than 100.4, worsening pain, chest pain, shortness breath, persistent nausea, vomiting, unable to eat or drink, or any other concerning signs or symptoms from your standpoint. Absolutely no driving for the remainder the night with the medications were given. Problem Qualifiers Primary Impression: Headache Headache type: unspecified Headache chronicity pattern: acute headache Intractability: not intractable Qualified Codes: R51 - Headache
== END 2017-12-16 18:18 | disposition home or self-care (01) ==
LOC: C.EDB 15:14
DX: R51 Headache (principal); F43.10 Post-traumatic stress disorder, unspecified; F17.210 Nicotine dependence, cigarettes, uncomplicated; Z83.3 Family history of diabetes mellitus; Z82.49 Family history of ischemic heart disease and other diseases of the circulatory system; Z84.1 Family history of disorders of kidney and ureter; Z82.0 Family history of epilepsy and other diseases of the nervous system; Z79.899 Other long term (current) drug therapy; Z88.8 Allergy status to other drugs, medicaments and biological substances

== ENCOUNTER 2018-03-07 02:24 | Emergency (ER) | payer SELFPAY ==
[~2018-03-07] VITALS: Ht 175.3 cm; Wt 83.5 kg
[2018-03-07 02:27] VITALS: TEMP 36.6; Ht 175.3 cm; Wt 83.5 kg
[2018-03-07] MEDS ORDERED: AMOX875T PO (02:54)
[2018-03-07] MEDS ORDERED: AMOXICIL/CLAVU 875MG HOME PACK PO ONE (03:00)
[2018-03-07] MEDS ORDERED: NORCO 5/325MG HOME PACK PO ONE (03:00)
[2018-03-07 03:18] VITALS: BP 117/82; PULSE 104; O2SAT 100
--- NOTE | 2018-03-07 07:20 | EMERGENCY ROOM VISIT NOTE ---
History First contact with patient: 02:39 Chief Complaint: BITE Stated Complaint: HORSE BITE-NUMBNESS,WEIRD SENSATIONS History of Present Illness The patient is a 27 year old female who presents to the Emergency Room with complaints of horse bite to her right arm that occurred about 12 hours prior to arrival. The patient was evidently at the [facility], and decided to pet one of the small horses. The patient states the animal was initially friendly, but as she removed her arm from petting the animal, it bit the medial proximal aspect of her right forearm. The patient had a very small amount of blood coming from the central aspect of the bite. She has had increased pain and bruising in the area since the injury. The patient has not taken anything over- the-counter for her symptoms. She is not on blood thinners. She rates her discomfort an 8/10. Review of Systems More than 10 systems were reviewed and otherwise negative with the exception of history of present illness. Past Medical/Surgical History Medical Problems: (1) Acute bronchitis (2) Acute head injury (3) Dehydration (4) Dental caries (5) Dental infection (6) Depression (7) Dysfunctional uterine bleeding (8) Fall (9) Headache (10) Headache (11) Headache (12) Headache (13) Hypokalemia (14) Injury of right hip (15) Injury of right upper extremity (16) Left ankle sprain (17) Left sided abdominal pain (18) Lightheadedness (19) Lumbar contusion (20) Migraine (21) Nausea (22) Nausea & vomiting (23) Noncompliance with medication regimen (24) Ovarian cyst (25) Pain, dental (26) Pain, dental (27) PTSD (post-traumatic stress disorder) (28) Scabies (29) Suicidal ideation (30) Thoracic back pain (31) Upper respiratory infection (32) Vaginal delivery (33) Vaginal spotting (34) Vomiting Family History Diabetes mellitus FH: migraines Hypertension Kidney disease or stones Seizures Social History Smoking Status: Current Every Day Smoker Alcohol Use: none Drug Use: none Marital Status: in relationship Housing Status: lives alone Occupation Status: unemployed Current/Historical Medications Scheduled Amoxicillin & Pot Clavulanate (Augmentin 875-125 mg), 1 TAB PO BID Physical Exam Vital Signs Date Time Temp Pulse Resp B/P (MAP) Pulse Ox O2 Delivery O2 Flow Rate FiO2 03/07/18 03:18 104 18 117/82 100 8/7/18 02:27 36.6 115 18 112/77 96 Room Air Physical Exam VITALS: Vitals are noted on the nurse's note and reviewed by myself. Vital signs stable. GENERAL: Well-developed, well-nourished, white female, who is in no acute distress and resting comfortably. Patient is cooperative with the examination. NECK: Supple without nuchal rigidity. No lymphadenopathy. No thyromegaly. Cervical spine is nontender. HEART: Regular rate and rhythm without murmurs gallops or rubs. LUNGS: Clear to auscultation bilaterally without wheezes, rales or rhonchi. No retractions or accessory muscle use. MUSCULOSKELETAL: There is a circular area of bruising roughly 6 cm in diameter consistent with an animal bite. This central area has a small sub-centimeter abrasion/small laceration that does not gape and will not require repair. The compartments to the forearm are soft. The patient is able to flex and extend at the wrist. Freelance [employer] strength is 5/5. She is able to supinate and pronate at the elbow. She does not have objective signs of compartment syndrome. Medical Decision & Procedures Medications Administered Medications (Trade) Dose Ordered Sig/Blanka Route Start Time Stop Time Status Last Admin Dose Admin Amoxicillin/ Clavulanate Potassium (Augmentin 875MG Home Pack) 1 homepack UD ONCE PO 03/07/18 03:00 03/07/18 03:01 DC 03/07/18 03:09 1 HOMEPACK Acetaminophen/ Hydrocodone Bitart (Hurricane 5/325mg Home Pack) 1 homepack UD ONCE PO 03/07/18 03:00 03/07/18 03:01 DC 03/07/18 03:09 1 HOMEPACK ED Course Physical exam and history were performed. Nursing notes, EMR, and Medication List were personally reviewed. Patient appears to have suffered a horse bite to her right arm. The patient is reportedly up-to-date on her tetanus. On exam she does not appear to have signs consistent with compartment syndrome. She may be developing a small hematoma, however the animal appears to primarily have gotten more fat tissue than muscle or bone. The patient is able to move her hand. She will be started on Augmentin and given a home pack of pain medication. The patient is to follow with her primary care physician for further management. She was otherwise invited back to the ER with any new, worsening, or concerning symptoms. The chart was completed utilizing [employer] Speech Voice Recognition Software. Grammatical errors, random word insertions, pronoun errors, and incomplete sentences are an occasional consequence of this system due to software limitations, ambient noise, and hardware issues. Any formal questions or concerns about the content, text, or information contained within the body of this dictation should be directly addressed to the provider for clarification. . Medical Decision Differential diagnosis includes, but is not limited to: Crush injury, laceration , abrasion, hematoma, animal bite, and others Impression Primary Impression: Horse bite Departure Information Dispostion Home / Self-Care Condition GOOD Prescriptions Amoxicillin & Pot Clavulanate (Augmentin 875-125 mg) 1 Tab Tab 1 TAB PO BID for 9 Days, #18 TAB Prov: Cong Brennan PA-C 03/07/18 Referrals Oli Geronimo M.D. Forms Work Instructions Additional Instructions: Please excuse from work today, Mar.07 2018. Patient Instructions My [facility], ED Compartment Syndrome At Risk For Additional Instructions You were seen and evaluated today on an emergency basis only. This is not a substitute for, or an effort to provide, complete comprehensive medical care. It is not possible to recognize and treat all injuries or illnesses in a single emergency department visit. For this reason it is recommended that you followup with your primary care physician in the next 2-3 days for recheck of your condition. Amoxicillin Clavulanate (Augmentin) 875mg: Take one pill twice daily for 10 total days for your infection. All antibiotics can cause diarrhea. If this occurs and you feel worse or it does not resolve in 1-2 days follow up with your doctor or return to the Emergency Department as this could be signs of serious underlying problems. Any medication can cause an allergic reaction, stop the pills immediately and return to the ER for rash, hives, breathing difficulties, or swelling. Hurricane (hydrocodone/acetaminophen) 5/325 mg (homepack): Take ONE pill by mouth every 6 hours as needed for worsening breakthrough pain. Do not drink or drive on Hurricane. This medication will likely make you tired. Do not take Hurricane and Tylenol at the same time as both contain acetaminophen. Hurricane may cause constipation. You may wish to take an [id number] stool softener like Colace if this occurs. Ice and elevate your arm to help prevent swelling. You are welcome to return to the emergency department anytime with new, worsening, or concerning symptoms. Work Instructions Additional Work Instructions: Please excuse from work today, 2017. Problem Qualifiers Primary Impression: Horse bite Encounter type: initial encounter Qualified Codes: W55.11XA - Bitten by horse, initial encounter
== END 2018-03-07 03:10 | disposition home or self-care (01) ==
LOC: C.EDB 02:26 → C.EDA 03:10
DX: S51.851A Open bite of right forearm, initial encounter (principal); W55.11XA Bitten by horse, initial encounter; Y93.89 Activity, other specified; Y92.89 Other specified places as the place of occurrence of the external cause; F17.200 Nicotine dependence, unspecified, uncomplicated

== ENCOUNTER 2018-03-10 00:33 | Emergency (ER) | payer SELFPAY ==
[~2018-03-10] VITALS: Ht 175.3 cm; Wt 82.9 kg
[~2018-03-10 00:33] MED LIST changes: +AMOX875T PO; -ESCI10TA17 PO; -HYDR50CA2 PO; -TRAZ100T29 PO
[2018-03-10 00:37] VITALS: TEMP 36.7; Ht 175.3 cm; Wt 82.9 kg
--- NOTE | 2018-03-10 01:05 | EMERGENCY ROOM VISIT NOTE ---
History Report prepared by Ignacio: Zain Callejas Under the Supervision of: Dr. Lisandra Magana D.O. First contact with patient: 00:41 Chief Complaint: NEURO SYMPTOMS Stated Complaint: ARM,LEG AND FACE NUMBNESS History of Present Illness The patient is a 27 year old female who presents to the Emergency Room with complaints of intermittent right-sided numbness beginning last night. The patient states her symptoms last for about 1.5 hours, and it has happened four times since last night. She reports nothing triggers her symptoms. The patient notes she was recently bitten by a horse. She states she developed intermittent numbness in her right arm prior to being evaluated on Tuesday night. The patient reports she was discharged with Augmentin and took it Tuesday and Tuesday. She notes she was not able to afford her prescription, so she did not get it filled. The patient states her numbness spread to the rest of her right-side. She reports she is right handed, and she was not able to use her right hand at work today. 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 She states she called her PCP and could not get an appointment until next week, so she came to the ED. The patient reports she intermittently has chills. She notes a history of asthma, and she occasionally uses an inhaler. The patient denies taking any other medication. She states a history of smoking and a strong family history of strokes. She denies a history of recent migraines, a history of focal numbness, trauma, back pain, hitting her head, fevers, leg swelling, headache, reactions to medications, recreational drug use, control use, a history of diabetes, and a history of HTN or HLD. Source of History: patient Onset: last night Position: other (right sided) Quality: numbness Timing: intermittent (1.5 hours at a time - happened four times) Modifying Factors (Worsening): other (nothing) Associated Symptoms: + chills, No fevers, No headache, No back pain Note: Denies: leg swelling Review of Systems See HPI for pertinent positives & negatives. A total of 10 systems reviewed and were otherwise negative. Past Medical & Surgical Medical Problems: (1) Acute bronchitis (2) Acute head injury (3) Dehydration (4) Dental caries (5) Dental infection (6) Depression (7) Dysfunctional uterine bleeding (8) Fall (9) Headache (10) Headache (11) Headache (12) Headache (13) Hypokalemia (14) Injury of right hip (15) Injury of right upper extremity (16) Left ankle sprain (17) Left sided abdominal pain (18) Lightheadedness (19) Lumbar contusion (20) Migraine (21) Nausea (22) Nausea & vomiting (23) Noncompliance with medication regimen (24) Ovarian cyst (25) Pain, dental (26) Pain, dental (27) PTSD (post-traumatic stress disorder) (28) Scabies (29) Suicidal ideation (30) Thoracic back pain (31) Upper respiratory infection (32) Vaginal delivery (33) Vaginal spotting (34) Vomiting Family History Diabetes mellitus FH: migraines Hypertension Kidney disease or stones Seizures Social History Smoking Status: Current Every Day Smoker Alcohol Use: none Drug Use: none Marital Status: in relationship Housing Status: lives alone Occupation Status: unemployed Current/Historical Medications Scheduled Amoxicillin & Pot Clavulanate (Augmentin 875-125 mg), 1 TAB PO BID Scheduled PRN Albuterol Hfa (Ventolin Hfa), 2 PUFFS INH Q6H PRN for SOB/Wheezing Allergies Coded Allergies: Tramadol (Verified Allergy, Intermediate, VOMITING, 03/07/18) Ketorolac Tromethamine (Verified Adverse Reaction, Mild, nausea, 03/07/18) Physical Exam Vital Signs Date Time Temp Pulse Resp B/P (MAP) Pulse Ox O2 Delivery O2 Flow Rate FiO2 03/10/18 03:28 73 18 94/55 97 03/10/18 02:50 73 18 94/55 97 Room Air 03/10/18 00:37 36.7 97 18 118/76 98 Room Air Physical Exam GENERAL: alert, well appearing, well nourished, no distress, non-toxic EYE EXAM: normal conjunctiva, PERRL and EOM's grossly intact OROPHARYNX: no exudate, no erythema, lips, buccal mucosa, and tongue normal and mucous membranes are moist NECK: supple, no nuchal rigidity, no adenopathy, non-tender LUNGS: Clear to auscultation. Normal chest wall mechanics HEART: no murmurs, S1 normal and S2 normal ABDOMEN: abdomen soft, non-tender, normo-active bowel sounds, no masses, no rebound or guarding. BACK: Back is symmetrical on inspection and there is no deformity, no midline tenderness, no CVA tenderness. SKIN: no rashes and no bruising UPPER EXTREMITIES: upper extremities are grossly normal with the exception of the right ventral forearm. Obvious contusion with small central superficial 1cm laceration. No bleeding or discharge. No surrounding erythema. LOWER EXTREMITIES: No pitting edema. NEURO EXAM: Normal sensorium, cranial nerves II-XII intact, normal speech, no weakness of arms, no weakness of legs. No drift. Finger to nose intact. Gross sensation intact. Subjective decreased sensation to the right face, right upper extremity, and right lower extremity. Medical Decision & Procedures ER Provider Diagnostic Interpretation: Radiology results have been interpreted by the [facility] radiologist and reviewed by me. CT HEAD: Comparison 09/03/[address] evidence for acute intracranial hemorrhage, infarct, or mass effect. No evidence for hydrocephalus. CTA HEAD: No evidence for intracranial arterial stenosis or occlusion. No visualized aneurysm. Radiologist: George Brower MD Study ready at 0231 and initial results transmitted at 0311. Laboratory Results 03/10/18 01:32 Red Blood Count 4.56, Mean Corpuscular Volume 91.0, Mean Corpuscular Hemoglobin 30.3, Mean Corpuscular Hemoglobin Concent 33.3, Mean Platelet Volume 9.9, Neutrophils (%) (Auto) 47.4, Lymphocytes (%) (Auto) 42.6, Monocytes (%) (Auto) 7.1, Eosinophils (%) (Auto) 2.0, Basophils (%) (Auto) 0.7, Neutrophils # (Auto) 2.55, Lymphocytes # (Auto) 2.29, Monocytes # (Auto) 0.38, Eosinophils # (Auto) 0.11, Basophils # (Auto) 0.04 03/10/18 01:32 Test 03/10/18 01:32 White Blood Count 5.38 K/uL (4.8-10.8) Red Blood Count 4.56 M/uL (4.2-5.4) Hemoglobin 13.8 g/dL (12.0-16.0) Hematocrit 41.5 % (37-47) Mean Corpuscular Volume 91.0 fL (80-100) Mean Corpuscular Hemoglobin 30.3 pg (25-34) Mean Corpuscular Hemoglobin Concent 33.3 g/dl (32-36) Platelet Count 273 K/uL (130-400) Mean Platelet Volume 9.9 fL (7.4-10.4) Neutrophils (%) (Auto) 47.4 % Lymphocytes (%) (Auto) 42.6 % Monocytes (%) (Auto) 7.1 % Eosinophils (%) (Auto) 2.0 % Basophils (%) (Auto) 0.7 % Neutrophils # (Auto) 2.55 K/uL (1.4-6.5) Lymphocytes # (Auto) 2.29 K/uL (1.2-3.4) Monocytes # (Auto) 0.38 K/uL (0.11-0.59) Eosinophils # (Auto) 0.11 K/uL (0-0.5) Basophils # (Auto) 0.04 K/uL (0-0.2) RDW Standard Deviation 48.4 fL (36.4-46.3) RDW Coefficient of Variation 14.5 % (11.5-14.5) Immature Granulocyte % (Auto) 0.2 % Immature Granulocyte # (Auto) 0.01 K/uL (0.00-0.02) Anion Gap 5.0 mmol/L (3-11) Est Creatinine Clear Calc Drug Dose 137.5 ml/min Estimated GFR () 134.9 Estimated GFR (Non- 116.4 BUN/Creatinine Ratio 15.6 (10-20) Calcium Level 8.6 mg/dl (8.5-10.1) Magnesium Level 2.0 mg/dl (1.8-2.4) Total Bilirubin 0.2 mg/dl (0.2-1) Aspartate Amino Transf (AST/SGOT) 15 U/L (15-37) Alanine Aminotransferase (ALT/SGPT) 20 U/L (12-78) Alkaline Phosphatase 70 U/L (45-117) Total Protein 7.9 gm/dl (6.4-8.2) Albumin 4.0 gm/dl (3.4-5.0) Globulin 3.9 gm/dl (2.5-4.0) Albumin/Globulin Ratio 1.0 (0.9-2) Thyroid Stimulating Hormone (TSH) 2.150 uIu/ml (0.300-4.500) Human Chorionic Gonadotropin, Qual NEG (NEG) Lyme Disease IgG Antibody NEG (NEG) Lyme Disease IgM Antibody NEG (NEG) Laboratory results per my review. Medications Administered Medications (Trade) Dose Ordered Sig/Blanka Route Start Time Stop Time Status Last Admin Dose Admin Amoxicillin/ Clavulanate Potassium (Augmentin 875MG Home Pack) 2 homepack UD ONCE PO 03/10/18 03:30 03/10/18 03:31 DC 03/10/18 03:38 2 HOMEPACK ECG Per My Interpretation Indication: other (numbness) Rate (beats per minute): 72 Rhythm: sinus rhythm Findings: no acute ischemic change, no ectopy, other (Slightly shortened LA interval. Normal QRS. Normal QTc. No delta waves.) ED Course 0049: The patient was evaluated in room A03. A complete history and physical exam was performed. 0117: I reevaluated the patient. She requested I complete all tests to rule out a stroke. 0318: Upon reevaluation, the patient is feeling better. I discussed the findings and the treatment plan with the patient. She verbalizes agreement and understanding. The patient will be discharged home when she receives her medication. 0330: Ordered Amoxicillin/Clavulanate Potassium 2 homepack PO Medical Decision The patient is a 27 year old female who presents to the ED with complaints of right sided numbness. Differential diagnoses include: CVA, MS, trauma, cervical and lumbar radiculopathy, peripheral nerve paresthesia, anxiety, complex migraine. Patient well-appearing here despite complaints. No focal weakness, however subjective sensory findings on the right-hand side. Patient's evaluation here negative. Patient also did note to nursing staff she just broke up with her significant other earlier this evening. I do feel there may be component of stress and anxiety contributing to symptoms. I do not suspect evolving or worsening infection related to recent animal bite. I do not suspect CVA, central venous sinus thrombus, CONSTRUCTION EQUIPMENT OPERATOR infection. No history of MS or complicated migraines. Discussed with her use of the Augmentin appropriately, follow-up with family doctor, symptoms to watch and return for, she verbalized understanding was agreeable with plan. Patient given Augmentin to go. I do not suspect additional occult trauma, discitis, acute nerve impingement, or other spinal pathology. I do not suspect occult vascular etiology. Medication Reconcilliation Current Medication List: was personally reviewed by me Blood Pressure Screening Patient's blood pressure: Normal blood pressure Blood pressure disposition: Did not require urgent referral Impression Primary Impression: Paresthesia Additional Impressions: Horse bite Tobacco abuse Scribe Attestation The scribe's documentation has been prepared under my direction and personally reviewed by me in its entirety. I confirm that the note above accurately reflects all work, treatment, procedures, and medical decision making performed by me. Departure Information Dispostion Home / Self-Care Referrals No Doctor, Assigned (PCP) Forms HOME CARE DOCUMENTATION FORM, IMPORTANT VISIT INFORMATION, WORK / SCHOOL INSTRUCTIONS Patient Instructions ED Paraesthesias, My [facility] Additional Instructions Please take the antibiotics as prescribed to complete a full course as previously directed. Please continue to monitor for GI symptoms which is most common side effect of this antibiotic. Please drink plenty fluids to stay well- hydrated. If you have any worsening numbness or tingling, develop weakness, headaches, vomiting, fevers, vision changes, dizziness, or unable to walk, you have any other new and concerning symptoms, please return the emergency room. Please consider quitting smoking. Chronic tobacco abuse can have long-term health complications and can lead to . Problem Qualifiers Additional Impressions: Horse bite Encounter type: subsequent encounter Qualified Codes: W55.11XD - Bitten by horse, subsequent encounter
[2018-03-10] MEDS ORDERED: OPTIRAY 320 IV PRN (01:30)
[2018-03-10 01:41] LABS: BASO % 0.7 %; BASO ABS # 0.04 K/uL (0-0.2); EOS ABS # 0.11 K/uL (0-0.5); HEMATOCRIT 41.5 % (37-47); HEMOGLOBIN 13.8 g/dL (12.0-16.0); IG# 0.01 K/uL (0.00-0.02); LYMPH % 42.6 %; LYMPH ABS # 2.29 K/uL (1.2-3.4); MEAN CORPUSCULAR HEMOGLOBIN 30.3 pg (25-34); MEAN CORPUSCULAR HGB CONC 33.3 g/dl (32-36); MEAN PLATELET VOLUME 9.9 fL (7.4-10.4); MONO % 7.1 %; MONO ABS # 0.38 K/uL (0.11-0.59); NEUT % 47.4 %; NEUT ABS # 2.55 K/uL (1.4-6.5); PLATELET COUNT 273 K/uL (130-400); RED CELL DISTRIBUTION WIDTH CV 14.5 % (11.5-14.5); RED CELL DISTRIBUTION WIDTH SD 48.4 fL (36.4-46.3); WHITE BLOOD COUNT 5.38 K/uL (4.8-10.8)
[2018-03-10] MEDS ORDERED: VNTHFA/IN INH (02:04)
[2018-03-10 02:09] LABS: CALCIUM 8.6 mg/dl (8.5-10.1); CREATININE 0.72 mg/dl (0.60-1.20); POTASSIUM 3.6 mmol/L (3.5-5.1); TOTAL PROTEIN 7.9 gm/dl (6.4-8.2)
[2018-03-10 03:28] VITALS: BP 94/55; PULSE 73; O2SAT 97
[2018-03-10] MEDS ORDERED: AMOXICIL/CLAVU 875MG HOME PACK PO ONE (03:30)
--- NOTE | 2018-03-10 06:38 | DIAGNOSTIC IMAGING REPORT ---
ANGIOGRAPHY HEAD COMBO HISTORY: Paresthesias. Neuropathy. TECHNIQUE: Multiaxial CT images of the head were performed both before and after the intravenous administration of contrast to evaluate the major cerebral vessels. Maximum intensity projection images were also obtained. A dose lowering technique was utilized adhering to the principles of ALARA. COMPARISON: None. FINDINGS: There is no mass, hematoma, midline shift, or acute infarct. Visualized intracranial internal carotid arteries, distal vertebral arteries, and basilar artery are widely patent. There is no significant stenosis, occlusion, or aneurysm seen within the bilateral ACAs, MCAs, or wildlife officer. IMPRESSION: No significant stenosis, occlusion, or aneurysm within the [place]. The above report was generated using voice recognition software. It may contain grammatical, syntax or spelling errors. Electronically signed by: Kingston Kent M.D. 03/10/2018 6:37 AM Dictated Date/Time: 03/10/2018 6:37 AM
== END 2018-03-10 03:29 | disposition home or self-care (01) ==
LOC: C.EDB 00:34 → C.EDA 03:29
DX: R20.2 Paresthesia of skin (principal); S50.11XD Contusion of right forearm, subsequent encounter; S51.811D Laceration without foreign body of right forearm, subsequent encounter; W55.1 Contact with horse; J45.909 Unspecified asthma, uncomplicated; F17.210 Nicotine dependence, cigarettes, uncomplicated; F32.9 Major depressive disorder, single episode, unspecified; F43.10 Post-traumatic stress disorder, unspecified; Z79.899 Other long term (current) drug therapy; Z83.3 Family history of diabetes mellitus; Z82.49 Family history of ischemic heart disease and other diseases of the circulatory system; Z84.1 Family history of disorders of kidney and ureter; Z82.0 Family history of epilepsy and other diseases of the nervous system; Z82.3 Family history of stroke